=== PATIENT | female | born 1980 | race Caucasian/White ===

== ENCOUNTER → 2017-11-07 15:23 | Outpatient (CLI) | payer MEDICAID, SELFPAY ==
--- NOTE | 2017-11-07 15:36 | DI.REPORT_ITS ---
SYMPTOMS/DIAGNOSIS: LOW BACK PAIN ACUTE, M54.5 LUMBAR SPINE: The vertebral bodies are well maintained in height. There is mild narrowing of the L 5 - S 1 disc space and minimal endplate osteophytes. The remaining disc spaces are well maintained. The alignment is normal. IMPRESSION: Mild degenerative disc changes at L 5 - S 1.
== END ==
PROVIDERS: PCP Family Medicine; Visit Provider Family Medicine
DX: M54.5 Low back pain (principal); M51.37 Other intervertebral disc degeneration, lumbosacral region
CPT/HCPCS: 72100

== ENCOUNTER 2018-01-08 13:47 | Outpatient (REF) | payer MEDICAID, SELFPAY | END 2018-01-08 14:07 | LOC: NCHCN 13:47 | PROVIDERS: PCP Family Medicine; Visit Provider Nurse Practitioner | DX: N76.0 Acute vaginitis (principal) | CPT/HCPCS: 87480; 87510; 87660 ==

== ENCOUNTER 2018-10-05 16:24 | Outpatient (REF) | payer MEDICAID, SELFPAY ==
--- NOTE | 2018-10-05 15:45 | PAPFT_PTH ---
PATIENT: Ena Pardo LOC: [facility] U#:[id number] AGE/SX: 38/F ROOM: RE10/05/[address]: MAG Moore : 1980 BED: DIS: 10/05/2018 SPEC #: [id number] RECD: 10/05/18 18:04 STATUS: LARRY VALLECILLO #: [id number] TULIO: 10/05/18 15:[address]: Jasmyn Fields DEPT: [facility] Cytology RECD BY: Naila Fowler ENTERED: 10/05/18 18:04 SP TYPE: PAPFT OTHR DR: Ernestina Rosales Tissues: 1 - CX/ENDOCX FOR PAP SMEARS Procedures: PAP THIN PREP/UVM Screening HPV DNA PROBE Comments: [id number]
[2018-10-08 15:09] LABS: Chlamydia Result Negative; GC Result Negative; Specimen Description CERVIX
== END 2018-10-05 16:44 ==
LOC: LBN 16:24
PROVIDERS: PCP Family Medicine; Visit Provider Nurse Practitioner Family
DX: Z11.3 Encounter for screening for infections with a predominantly sexual mode of transmission (principal); Z12.4 Encounter for screening for malignant neoplasm of cervix; Z11.51 Encounter for screening for human papillomavirus (HPV)
CPT/HCPCS: 87491; 87591; 88142; 87624

== ENCOUNTER 2018-10-05 16:24 | Outpatient (CLI) | payer MEDICAID, SELFPAY ==
[2018-10-08 10:32] LABS: Hepatitis C Ab w Rflx HCV PCR Negative (NEGAT)
[2018-10-08 11:10] LABS: Hepatitis B Surface Ag Negative (NEGAT)
[2018-10-08 11:26] LABS: HIV-1/2 Ag & Ab Screen Negative (NEGAT)
[2018-10-08 11:54] LABS: Syphilis Serology (RPR) Negative (Negative)
== END 2018-10-05 16:44 ==
PROVIDERS: PCP Nurse Practitioner; Visit Provider Nurse Practitioner Family
DX: Z11.59 Encounter for screening for other viral diseases (principal); Z11.4 Encounter for screening for human immunodeficiency virus [HIV]; Z01.84 Encounter for antibody response examination
CPT/HCPCS: 36415; 86803; 87340; 87389; 86592

== ENCOUNTER 2020-08-13 10:28 | Outpatient (REF) | payer MEDICAID, SELFPAY | END 2020-08-13 10:29 | disposition home or self-care (01) | LOC: NCHCN 10:28 | PROVIDERS: PCP Family Medicine; Visit Provider Nurse Practitioner | DX: N39.0 Urinary tract infection, site not specified (principal) | CPT/HCPCS: 87077; 87086 ==

== ENCOUNTER 2020-09-02 01:12 | Outpatient (CLI) | payer MEDICAID, SELFPAY ==
--- NOTE | 2020-09-02 | DI.US_ITS ---
Exam(s) US PELVIS TRANSVAGINAL EXAM: US PELVIS TRANSVAGINAL CLINICAL HISTORY: MENSTRUAL BLEEDING ABNL, N93.9. TECHNIQUE: Transabdominal and transvaginal pelvic ultrasound was performed using standard protocol. COMPARISON: US PELVIS TRANSVAG from 02/26/2014 FINDINGS: KIDNEYS: Kidneys are symmetric in size. No evidence of renal calculi. No evidence of hydronephrosis. No renal mass or cyst identified. UTERUS: Position: Anteverted. Size: 7.7 long by 4.5 AP by 5.5 transverse cm Endometrium: 1.5 cm. Upper limits of normal in a premenopausal patient. Myometrium: Unremarkable. Cervix: Unremarkable. OVARIES: Right: 3.3 x 2.8 x 2.1 cm Cyst or mass: Small functional cysts are present. Left: 2.9 x 2.5 x 1.8 cm Cyst or mass: Functional cysts are present including a 0.8 x 0.9 x 1.6 corpus luteal cyst. DOPPLER: Color: Symmetric and uniform flow to both ovaries. No hyperemia. Duplex: Normal ovarian arterial waveforms visualized. CUL-DE-SAC: Free fluid: None. Other: None. IMPRESSION: 1. Normal sonographic appearance of the kidneys. 2. Normal-appearing uterus with endometrial stripe within normal limits. 3. Unremarkable bilateral ovaries. DATA REPOSITORY:
== END 2020-09-02 01:32 ==
PROVIDERS: PCP Nurse Practitioner; Visit Provider Nurse Practitioner
DX: N93.9 Abnormal uterine and vaginal bleeding, unspecified (principal)
CPT/HCPCS: 76830; 76856

== ENCOUNTER 2020-09-14 03:16 | Outpatient (CLI) | payer MEDICAID, SELFPAY ==
[2020-09-14 12:01] LABS: Abs Immature Grans 0.02 10^3/uL (0.0-0.06); Absolute Basophil Count 0.06 10^3/uL (0.0-0.2); Absolute Eosinophil Count 0.22 10^3/uL (0.0-0.7); Absolute Lymphocyte Count 2.59 10^3/uL (1.2-3.4); Absolute Monocyte Count 0.42 10^3/uL (0.1-0.8); Absolute Neutrophil Count 3.13 10^3/uL (1.2-6.7); Basophils % 0.9; Eosinophils % 3.4; HCT 40.2 % (36.0-46.0); HGB 13.1 g/dL (11.2-15.7); Immature Grans % 0.3; Lymphocytes % 40.2; MCHC 32.6 % (32.0-36.0); MCV 92.2 fL (80-95); MPV 12.5 fL (8.0-11.0); Monocytes % 6.5; Neutrophils % 48.7; Nucleated RBC 0 %; Platelet Count 185 10^3/uL (130-400); RBC 4.36 10^6/uL (3.93-5.22); RDW 13.5 % (11.7-14.6); RDW-SD 46.3 fL; WBC 6.44 10^3/uL (4.4-10.8)
[2020-09-14 13:37] LABS: TSH (W/Ref FT4) 1.06 uIU/mL (0.36-3.74)
[2020-09-14 22:32] LABS: Prolactin 7.3 ng/mL (See Table)
== END 2020-09-14 03:17 | disposition home or self-care (01) ==
LOC: LBO 03:16
PROVIDERS: PCP Nurse Practitioner; Visit Provider Obstetrics & Gynecology
DX: N93.8 Other specified abnormal uterine and vaginal bleeding (principal)
CPT/HCPCS: 36415; 84146; 84443; 85025

== ENCOUNTER 2020-09-21 12:44 | Outpatient (REF) | payer MEDICAID, SELFPAY ==
--- NOTE | 2020-09-21 11:30 | ENDOMET_PTH ---
PATIENT: Ena Pardo LOC: [facility] #:[id number] AGE/SX: 40/F ROOM: RE09/21/[address]: Anastacia Herrera DO : 1980 BED: DIS: 09/21/2020 SPEC #: [id number] RECD: 09/21/20 13:04 STATUS: LARRY RESari #: [id number] TULIO: 09/21/20 11:[address]: Shannon Ko DEPT: Surgical Specimen RECD BY: Naila Fowler ENTERED: 09/21/20 13:04 SP TYPE: Endomet OTHR DR: Briana Guillermo Tissues: 1 - ENDOMETRIUM BX/BETTIE Procedures: GROSS AND MICRO LEVEL 4 Comments: [id number]
== END 2020-09-21 12:45 | disposition home or self-care (01) ==
LOC: LBN 12:44
PROVIDERS: PCP Nurse Practitioner; Visit Provider Obstetrics & Gynecology
DX: N93.8 Other specified abnormal uterine and vaginal bleeding (principal); N85.01 Benign endometrial hyperplasia
CPT/HCPCS: 88305

== ENCOUNTER 2020-11-24 18:05 | Emergency (ER) | payer MEDICAID, SELFPAY ==
[2020-11-24 18:08] VITALS: BP 126/75; PULSE 95; RESP 16; TEMP 36.5; O2SAT 97
--- NOTE | 2020-11-24 18:15 | ED.GENADUL_ITS ---
Discharge Plan Disposition Patient Disposition: HOME Condition: Improving Discharge Details Clinical Impression: Migraine Primary Care Provider: Briana Guillermo ED Provider: Nazario Velázquez Home Meds and New Rx's Prescriptions: Continued naproxen sodium [Aleve] 220 mg capsule 220 mg PO BID PRNRF: 0 progesterone micronized [Prometrium] 100 mg capsule 100 mg PO QAM 90 Days Qty: 90 RF: 0 sumatriptan succinate [Imitrex] 50 mg tablet 50 mg PO ONCE RF: 0 Discharge Instructions Additional Instructions: Home to rest tonight.Sleep in a dark, quiet room. Small, frequent sips of fluids to maintain hydration. May continue Tylenol and/or naproxen as needed for persistent discomfort. Return develop a fever, worsening headache, or any other acute concerns. You were given a narcotic this evening, for which we would ask you not to drive the remainder of the day. Discharge Data Discharge Date/Time-TO BE ENTERED AT DEPARTURE: 11/24/20 19:56 Medical Decision Making 40-year-old female with a history of migraines presents with onset of migraine yesterday which has been persistent, global and associated with some muscular tightness in her neck which she states is common. She is not fallen or injured her self and she has not been ill. She arrives to the ER afebrile, interactive with no evidence of neurologic deficit. IV access established, patient given fluids and parenteral medications. Screening urinalysis obtained which appears contaminated and will be cultured. Patient with improvement following parenteral medications. She did have some persistent cephalgia and was given additional analgesic. She then improved and was discharged. HPI General Mode of arrival: ambulatory . Date/Time Provider Initiated Documentation: 11/24/20 18:05 . Limitations to Documentation: no limitations . Information obtained by: patient . History of Present Illness 40 year old F presents to the emergency department with the chief complaint of Migraine for 24 hrs, described as moderate, severe and similar to prior episodes, Quality is described as constant, and is localized to the head. Patient reports no radiation. Patient started experiencing this hour(s) and it has been constant. No relieving factors improve symptom(s), Other factors that worsen symptoms (light) . Patient notes headaches; denies syncope. Patient did receive the following treatments prior to arrival, other (nsaid this am) Related Data Home Medications Medication Instructions Recorded Confirmed naproxen sodium 220 mg capsule 220 mg PO BID PRN 10/05/18 11/24/20 sumatriptan succinate 50 mg tablet 50 mg PO ONCE 09/11/20 11/24/20 progesterone micronized 100 mg 100 mg PO QAM 90 Days #90 cap 10/09/20 11/24/20 capsule Previous Rx's Medication Instructions Recorded progesterone micronized 100 mg 100 mg PO QAM 90 Days #90 cap 10/09/20 capsule Allergies Allergy/AdvReac Type Severity Reaction Status Date / Time Sulfa (Sulfonamide Allergy Severe Anaphylaxsi Verified 11/24/20 18:13 Antibiotics) s chlorhexidine Allergy Mild Skin Rash Verified 11/24/20 18:13 [From Hibiclens] General Stated Complaint: Headache NATHANIEL: 3 Review of Systems Narrative: No fall or injury. No other illness. No known sick contacts. No vomiting. Positive light sensitivity. Gets tension in her neck. 8 systems reviewed and otherwise negative. 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 [place] like the neurologist did not offer any helpful treatment Currently manages with Fioricet Thickened endometrium RENEE III (vulvar intraepithelial neoplasia III) Surgical History section 2001, 2007, 2011 Family History Mother Fibrocystic breast changes Father Hyperlipidemia Hypertension Paternal Grandmother Breast cancer with recurrence Social History Smoking/Tobacco Use Status: Current every day Tobacco Type: cigarettes Smoking risk assessment performed?: Yes Drug use: Occasionally Substance use type: marijuana Do you feel safe at home: Yes Do you feel safe in your relationship?: Yes Exam Narrative Exam Narrative: GEN: awake, alert, oriented 3. Pleasant, well groomed, interactive. Lying in darkened room HEAD: Normocephalic, atraumatic ENT: Mucous membranes moist, oropharynx unremarkable, tympanic membranes clear bilaterally, external ear exam unremarkable EYES: PERRL, EOMI NECK: Full ROM, no PATIENCE, no menigismus, left posterior muscular tenderness and mild spasm. No midline tenderness. CHEST/RESP: Nontender, clear to auscultation bilateral, no wheeze/rhonchi/rales CARDIOVASCULAR: RRR, no murmur, rub manuel. 2+ Rad pulse bilateral ABDOMEN: Soft, nontender, no mass. +Bowel sounds EXT: Full ROM, no edema, no rash Neuro: Grossly normal neurologic exam, conversant, interactive. Psych: Speech fluent, thoughts congruent, affect normal Course Vital Signs Vital signs: Vital Signs Temperature 36.5 C 11/24/20 18:08 Pulse 95 H 11/24/20 18:08 Respiratory Rate 16 11/24/20 18:08 Blood Pressure 126/75 11/24/20 18:08 Pulse Oximetry 97 11/24/20 18:08 Temperature 36.5 C 11/24/20 18:08 Temperature Source Skin 11/24/20 18:08 Pulse 95 H 11/24/20 18:08 Respiratory Rate 16 11/24/20 18:08 Respiratory Effort Non-Labored 11/24/20 18:08 Blood Pressure 126/75 11/24/20 18:08 Blood Pressure Position Sitting 11/24/20 18:08 Pulse Oximetry 97 11/24/20 18:08 Oxygen Delivery Method Room Air 11/24/20 18:08 Oxygen Flow Rate 0 11/24/20 18:08 Pain Level 9 11/24/20 18:08
[2020-11-24] MEDS: Normal Saline 1,000 ML 1000 ML IV (18:34)
[2020-11-24] MEDS: Dexamethasone 10 MG/ML VIAL IVP (18:34)
[2020-11-24] MEDS: Ketorolac 15 MG/ML VIAL IVP (18:36)
[2020-11-24] MEDS: diphenhydrAMINE 50 MG/ML VIAL 25 MG IVP (18:38)
[2020-11-24 18:40] LABS: Bilirubin Negative (Negative); Blood Moderate (Negative); Clarity Cloudy (Clear); Glucose Negative (Negative); Ketones Negative (Negative); Leukocyte Esterase Negative (Negative); Nitrite Negative (Negative); Specific Gravity 1.025 (1.005-1.025); pH 7.5 (5-8)
[2020-11-24 19:12] LABS: Bacteria Few HPF (Negative); C & S Indicated? Yes; Casts Negative LPF (Negative); Crystals Moderate Amorphous HPF (Negative); Epithelial Cells Negative HPF (Negative); Mucus Negative (Negative); Other Cells Negative (Negative)
[2020-11-24 19:30] VITALS: BP 125/65; PULSE 85; TEMP 36.4; O2SAT 98
[2020-11-24] MEDS: HYDROmorphone 2 MG/ML VIAL 1 MG IVP (19:40)
[2020-11-24 19:54] VITALS: BP 98/47; PULSE 86; RESP 16; O2SAT 97
== END 2020-11-24 19:56 | disposition home or self-care (01) ==
PROVIDERS: Emergency Provider Emergency Medicine; PCP Nurse Practitioner
DX: G43.909 Migraine, unspecified, not intractable, without status migrainosus (principal)
CPT/HCPCS: 81025; 96361; 96374; 96375; 99284; 81003; 81015; 87086; J1100; J1200; J1885

== ENCOUNTER 2021-01-26 01:11 | Outpatient (CLI) | payer MEDICAID, SELFPAY ==
[2021-01-26] MEDS: Omnipaque 350 MG/ML 50 ML BTL IJ (13:17)
[2021-01-26] MEDS: Breeza Beverage 473 ML BTL PO ×2 (13:18→13:19)
[2021-01-26] MEDS: Normal Saline - Diluent 50 ML VIAL IV (14:34)
[2021-01-26] MEDS: Omnipaque 350 MG/ML 100 ML BTL IJ (14:34)
--- NOTE | 2021-01-26 14:40 | DI.CT_ITS ---
Exam(s) CT ABDOMEN PELVIS W EXAM: CT ABDOMEN PELVIS W INDICATION: LLQ pain- bulging. ? hernia. s/p 4 ,R10.32. COMPARISON: No exams were available for comparison TECHNIQUE: FINDINGS: CT examination of the abdomen and pelvis was performed with a bolus infusion of 100 cc of Omnipaque 3 50. Images obtained through the lung bases are unremarkable. The liver is unremarkable in appearance. Gallbladder and bile ducts are CT normal. Pancreas appears normal. Spleen is unremarkable in appearance. Adrenals appear normal. The kidneys are unremarkable with no evidence of hydronephrosis, nephrolithiasis, or renal mass.. Ur inary bladder unremarkable. Abdominal aorta is of normal diameter and no major vascular abnormality is seen. There is no true abdominal hernia. However, there is marked diastasis anterior bulging the linea alb a. No abdominal or pelvic adenopathy. [employer]PER[employer]OR structures appear intac with an apparent corpus luteum on the right. T. Appendix is normal. No evidence of diverticulitis or bowel obstruction. IMPRESSION: Prominent diastasis recti with ventral bulging of the linea alba. No true abdominal wall hernia. No additional significant findings. RADIATION DOSE DELIVERED: 829.98mGy.cm Total DLP 829.98mGy.cm Total DLP 17.08mGy CTDIvol RADIATION OPTIMIZATION: All CT scans at this facility use at least one of these dose optimization te chniques: automated exposure control; mA and/or kV adjustment per patient size (includes targeted exa ms where dose is matched to clinical indication); or iterative reconstruction.
== END 2021-01-26 01:31 ==
PROVIDERS: PCP Nurse Practitioner; Visit Provider Surgery
DX: R10.32 Left lower quadrant pain (principal); R93.5 Abnormal findings on diagnostic imaging of other abdominal regions, including retroperitoneum
CPT/HCPCS: 74177; J3490; Q9967

== ENCOUNTER 2021-01-27 12:44 | Emergency (ER) | payer MEDICAID, SELFPAY ==
[2021-01-27 12:51] VITALS: BP 125/64; PULSE 85; RESP 16; TEMP 36.7; O2SAT 98
--- NOTE | 2021-01-27 13:03 | ED.GENADUL_ITS ---
Discharge Plan Disposition Patient Disposition: HOME Condition: Improving Discharge Details Clinical Impression: Pyelonephritis Primary Care Provider: Briana Guillermo ED Provider: Bekah Mitchell Home Meds and New Rx's Prescriptions: New cephalexin 500 mg capsule 500 mg PO BID 14 Days Qty: 28 RF: 0 Continued naproxen sodium [Aleve] 220 mg capsule 220 mg PO BID PRNRF: 0 sumatriptan succinate [Imitrex] 50 mg tablet 50 mg PO ONCE RF: 0 Discharge Instructions Instructions: Urinary Tract Infection in Women (ED), Kidney Infection (ED) Additional Instructions: Drink plenty of fluids and get plenty of rest. Alternate tylenol and motrin as needed and directed for pain. A prescription for antibiotics has been sent electronically to your pharmacy. Follow-up with your primary care doctor in [address] Hutcihns's office for follow-up for reevaluation if needed. Return to the emergency department with any worsening or new concerning symptoms. Referrals: Sara Whyte MD [ [facility] STAFF PHYSICIAN] - Discharge Data Discharge Date/Time-TO BE ENTERED AT DEPARTURE: 01/27/21 16:33 Discharge Physician: Bekah Mitchell Medical Decision Making 40-year-old female with a previous history of pyelonephritis presents with right-sided abdominal pain since yesterday. Denies urinary symptoms but states she usually does not have urinary symptoms with her pyelonephritis. She is also recently seen Dr. Whyte for left-sided abdominal pain and with a history of diastases recti and was referred for outpatient CT yesterday which noted Prominent diastasis recti with ventral bulging of the linea alba. No true abdominal wall hernia. No additional significant findings. She appears slightly uncomfortable but nontoxic. Her vitals are within normal limits. She has minimal right-sided tenderness. No CVA tenderness. No rigidity or guarding. Differential diagnosis includes UTI, pyelonephritis, colitis, etc. As she had C T imaging from yesterday which was unremarkable for acute findings other than diastases recti, do not see medication for repeat CT imaging. Will obtain screening labs, give a dose of Toradol, Zofran and reassess Labs reviewed and notes findings consistent with UTI. Remainder of labs within normal limits. Patient reassessed and she feels much better and feels good to go home. Dr. Whyte also evaluated patient at bedside and no other acute recommendations. She was given a dose of keflex here. A prescription for Keflex was sent electronically to her pharmacy. Advised to follow up with the primary care doctor for re-evaluation. Usual and customary return precautions given prior to discharge. Imaging Data Radiologic Study: Radiologist's impression: CT from 01/26/2021 CT ABDOMEN PELVIS W INDICATION: LLQ pain- bulging. ? hernia. s/p 4 ,R10.32. COMPARISON: No exams were available for comparison TECHNIQUE: FINDINGS: CT examination of the abdomen and pelvis was performed with a bolus infusion of 100 cc of Omnipaque 350. Images obtained through the lung bases are unremarkable. The liver is unremarkable in appearance. Gallbladder and bile ducts are CT normal. Pancreas appears normal. Spleen is unremarkable in appearance. Adrenals appear normal. The kidneys are unremarkable with no evidence of hydronephrosis, nephrolithiasis, or renal mass.. Urinary bladder unremarkable. Abdominal aorta is of normal diameter and no major vascular abnormality is seen. There is no true abdominal hernia. However, there is marked diastasis anterior bulging the linea alba. No abdominal or pelvic adenopathy. [employer] PROFESSOR structures appear intac with an apparent corpus luteum on the right. T. Appendix is normal. No evidence of diverticulitis or bowel obstruction. IMPRESSION: Prominent diastasis recti with ventral bulging of the linea alba. No true abdominal wall hernia. No additional significant findings. Lab Data Lab results reviewed: Yes I reviewed the patient's lab results. Labs: 01/27/21 13:05 Urine - Reflex from Ua Urine Culture - Pending Laboratory Tests Range/Units 01/27/21 01/27/21 01/27/21 13:05 13:10 13:10 WBC (4.4-10.8) 10^3/uL 9.01 RBC (3.93-5.22) 10^6/uL 4.35 Hgb (11.2-15.7) g/dL 13.0 Hct (36.0-46.0) % 39.3 MCV (80-95) fL 90.3 MCH (27.0-33.0) pg 29.9 MCHC (32.0-36.0) % 33.1 RDW (11.7-14.6) % 13.2 Plt Count (130-400) 10^3/uL 180 MPV (8.0-11.0) fL 12.3 H Immature Gran % 0.4 Neutrophils % 72.4 Lymphocytes % 19.2 Monocytes % 6.3 Eosinophils % 1.3 Basophils % 0.4 Nucleated RBC % % 0 Absolute Neutrophils (1.2-6.7) 10^3/uL 6.51 Absolute Lymphocytes (1.2-3.4) 10^3/uL 1.73 Absolute Monocytes (0.1-0.8) 10^3/uL 0.57 Absolute Eosinophils (0.0-0.7) 10^3/uL 0.12 Absolute Basophils (0.0-0.2) 10^3/uL 0.04 Sodium (136-145) mmol/L 140 Potassium (3.5-5.1) mmol/L 3.5 Chloride (98-107) mmol/L 105 Carbon Dioxide (21.0-32.0) mmol/L 22.8 Anion Gap (3-11) mmol/L 12.2 H BUN (7-18) mg/dL 10 Creatinine (0.55-1.02) mg/dL 0.9 Estimated GFR/1.73 m2 (mL/min/1.73m2) >= 60.00 Glucose (74-106) mg/dL 139 H Calcium (8.5-10.1) mg/dL 8.7 Total Bilirubin (0.2-1.0) mg/dL 0.3 AST (15-37) U/L 17 ALT (14-59) U/L 18 Alkaline Phosphatase (46-116) U/L 79 Total Protein (6.4-8.2) g/dL 7.1 Albumin (3.4-5.0) g/dL 3.8 Urine Color (Yellow) Yellow Urine Clarity (Clear) CLOUDY Urine pH (5-8) 6.0 Ur Specific [place] (1.005-1.025) >= 1.030 H Urine Protein (Negative) mg/dL 100 H Urine Ketones (Negative) mg/dL 40 H Urine Blood (Negative) Moderate H Urine Nitrite (Negative) Positive H Urine Bilirubin (Negative) Negative Urine Urobilinogen (Up TO 0.2) EU/dL 0.2 Ur Leukocyte Esterase (Negative) Small H Urine RBC (0-2) HPF 5-10 H Urine WBC (0-5) HPF 5-10 Ur Epithelial Cells (Negative) HPF Few Urine Crystals (Negative) HPF Negative Urine Bacteria (Negative) HPF Many Urine Casts (Negative) LPF Negative Urine Mucus (Negative) Trace Urine Other (Negative) Few Transitional Ur Culture Indicated? Yes Urine Glucose (Negative) mg/dL Negative HPI General Mode of arrival: ambulatory . Date/Time Provider Initiated Documentation: 01/27/21 13:00 . Limitations to Documentation: no limitations . Information obtained by: patient . HPI Narrative: Pt is a 40yo F who presents with right sided abdominal pain since this morning. She describes it as achy and crampy. She states it is located in the R side of her abdomen and wraps around to the right side of her back. She has not taken any medication for pain. Pt admits to some nausea but denies fever, vomiting or urinary symptoms. She states she has a h/o kidney infections in the past without having any urinary symptoms first. She does also note that she had been having left sided abdominal pain recently also for which she saw Dr. Whyte recently and had an outpatient CT scan of her abdomen yesterday. She states she is aware that she has a h/o diastasis recti and was referred for the CT to rule out a hernia. She states the left sided abdominal pain is not present at this time. Related Data Home Medications Medication Instructions Recorded Confirmed naproxen sodium 220 mg capsule 220 mg PO BID PRN 10/05/18 01/27/21 sumatriptan succinate 50 mg tablet 50 mg PO ONCE 12/23/20 01/27/21 cephalexin 500 mg PO BID 14 Days #28 cap 01/27/21 Previous Rx's Medication Instructions Recorded cephalexin 500 mg PO BID 14 Days #28 cap 01/27/21 Allergies Allergy/AdvReac Type Severity Reaction Status Date / Time chlorhexidine Allergy Mild unknown Verified 01/27/21 12:56 [From Hibiclens] Sulfa (Sulfonamide Allergy Mild unknown Verified 01/27/21 12:56 Antibiotics) General Stated Complaint: Abd Prob NATHANIEL: 3 Review of Systems All systems reviewed & are unremarkable except as noted in HPI and below Constitutional Constitutional: Reports as per HPI, Denies chills and Denies fever(s) Eyes Eyes: Denies blurry vision ENT Ears, Nose, Mouth, and Throat: Denies dizziness, Denies sore throat and Denies throat swelling Cardiovascular Cardiovascular: Denies chest pain and Denies dyspnea Respiratory Respiratory: Denies cough and Denies dyspnea Gastrointestinal Gastrointestinal: Reports abdominal pain, Denies diarrhea, Reports nausea and Denies vomiting Genitourinary Genitourinary: Denies hematuria and Denies dysuria Musculoskeletal Musculoskeletal: Denies back pain and Denies numbness Integumentary/Breasts Skin/Breast: Denies lesions and Denies rash Neurologic Neurologic: Denies dizziness, Denies localized weakness and Denies numbness Allergic/Immunologic Allergic/Immunologic: Denies throat swelling [facility] Medical History (Updated 01/27/21 @ 15:50 by Bekah Mitchell DO) Deviated nasal septum Diastasis recti DUB (dysfunctional uterine bleeding) Eczema Occurs seasonally to upper arms, manages with topical creams/steroids prn 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 [place] like the neurologist did not offer any helpful treatment Currently manages with Fioricet Thickened endometrium RENEE III (vulvar intraepithelial neoplasia III) Surgical History section 2001, 2007, 2011 Family History Mother Fibrocystic breast changes Father Hyperlipidemia Hypertension Paternal Grandmother Breast cancer with recurrence Social History Smoking/Tobacco Use Status: Current every day Tobacco Type: cigarettes Smoking risk assessment performed?: Yes Drug use: Occasionally Substance use type: marijuana Current gender identity: female Do you feel safe at home: Yes Do you feel safe in your relationship?: Yes Exam Const General: cooperative and no acute distress HENMT Head: normal to inspection Face and sinus: normal facial exam Eyes General: appearance normal, both eyes and all related structures EOM: EOM intact bilaterally Neck Neck: normal visual inspection and No submandibular swelling Lymphatic: no lymphadenopathy noted Chest Chest: normal inspection of the chest and no tenderness Resp Effort & Inspection: normal respiratory effort and able to speak in complete sentences Auscultation: clear to auscultation bilaterally Cardio Rate: regular rate Rhythm: regular rhythm GI Inspection: normal to inspection Palpation: soft, not firm, not rigid and tender (right mid abdomen) in the RLQ Auscultation: normal bowel sounds Back/Spine/Pelvis Thoracic/Lumbar Spine: thoracic and lumbar spine normal to inspection Pelvis: no pain with anterior-posterior compression Skin General skin exam: no rashes or lesions noted Neuro General: patient alert, patient awake and patient oriented x3 Cognition: normal cognition Speech: speech normal Motor: muscle tone normal throughout Sensory Exam: no sensory deficits noted Extrem General: normal to inspection, full ROM, capillary refill normal, no calf tenderness bilaterally and no edema Psych Appearance: grossly normal Mental Status: mental status grossly normal Speech and Movement: speech and movement normal Affect: normal affect Course Vital Signs Vital signs: Vital Signs Temperature 98.1 F 01/27/21 12:51 Pulse 85 01/27/21 12:51 Respiratory Rate 16 01/27/21 12:51 Blood Pressure 125/64 01/27/21 12:51 Pulse Oximetry 98 01/27/21 12:51 Temperature 98.1 F 01/27/21 12:51 Temperature Source Skin 01/27/21 12:51 Pulse 85 01/27/21 12:51 Respiratory Rate 16 01/27/21 12:51 Respiratory Effort Non-Labored 01/27/21 12:51 Blood Pressure 125/64 01/27/21 12:51 Blood Pressure Position Sitting 01/27/21 12:51 Pulse Oximetry 98 01/27/21 12:51 Oxygen Delivery Method Room Air 01/27/21 12:51 Oxygen Flow Rate 0 01/27/21 12:51 Pain Level 9 01/27/21 12:51
[2021-01-27 13:10] LABS: Bilirubin Negative (Negative); Blood Moderate (Negative); Glucose Negative (Negative); Ketones 40 mg/dL (Negative); Leukocyte Esterase Small (Negative); Nitrite Positive (Negative); Specific Gravity >= 1.030 (1.005-1.025); Urobilinogen 0.2 EU/dL (Up TO 0.2)
[2021-01-27 13:11] LABS: Clarity CLOUDY (Clear)
[2021-01-27] MEDS: Normal Saline Flush 10 ML SYR IVP ×2 (13:18→14:21)
[2021-01-27] MEDS: Normal Saline 1,000 ML 1000 ML IV (13:18)
[2021-01-27 13:21] LABS: Bacteria Many HPF (Negative); Crystals Negative HPF (Negative); Epithelial Cells Few HPF (Negative); Mucus Trace (Negative); Other Cells Few Transitional (Negative)
[2021-01-27 13:22] LABS: C & S Indicated? Yes; Casts Negative LPF (Negative)
[2021-01-27 13:23] LABS: Abs Immature Grans 0.04 10^3/uL (0.0-0.06); Absolute Basophil Count 0.04 10^3/uL (0.0-0.2); Absolute Eosinophil Count 0.12 10^3/uL (0.0-0.7); Absolute Lymphocyte Count 1.73 10^3/uL (1.2-3.4); Absolute Monocyte Count 0.57 10^3/uL (0.1-0.8); Absolute Neutrophil Count 6.51 10^3/uL (1.2-6.7); Basophils % 0.4; Eosinophils % 1.3; HCT 39.3 % (36.0-46.0); Immature Grans % 0.4; Lymphocytes % 19.2; MCH 29.9 pg (27.0-33.0); MCHC 33.1 % (32.0-36.0); MCV 90.3 fL (80-95); MPV 12.3 fL (8.0-11.0); Monocytes % 6.3; Neutrophils % 72.4; Nucleated RBC 0 %; Platelet Count 180 10^3/uL (130-400); RBC 4.35 10^6/uL (3.93-5.22); RDW 13.2 % (11.7-14.6); RDW-SD 44.5 fL; WBC 9.01 10^3/uL (4.4-10.8)
[2021-01-27 13:33] LABS: ALT 18 U/L (14-59); AST 17 U/L (15-37); Albumin 3.8 g/dL (3.4-5.0); Alkaline Phosphatase 79 U/L (46-116); Anion Gap 12.2 mmol/L (3-11); BUN 10 mg/dL (7-18); Bilirubin, Total 0.3 mg/dL (0.2-1.0); CO2 22.8 mmol/L (21.0-32.0); CREATININE 0.9 mg/dL (0.55-1.02); Calcium 8.7 mg/dL (8.5-10.1); Chloride 105 mmol/L (98-107); Glucose 139 mg/dL (74-106); Potassium 3.5 mmol/L (3.5-5.1); Sodium 140 mmol/L (136-145); Total Protein 7.1 g/dL (6.4-8.2)
[2021-01-27] MEDS: Ketorolac 30 MG/ML VIAL IVP (14:19)
[2021-01-27] MEDS: Ondansetron 4 MG/2 ML VIAL IVP (14:19)
[2021-01-27 14:57] VITALS: BP 117/67; PULSE 72; RESP 16; TEMP 36.7; O2SAT 100
[2021-01-27] MEDS: Cephalexin 500 MG CAP PO (15:34)
[2021-01-27 16:32] VITALS: BP 117/67; PULSE 72; RESP 16; TEMP 36.7; O2SAT 100
== END 2021-01-27 16:33 | disposition home or self-care (01) ==
PROVIDERS: Emergency Provider Physician Assistant; PCP Nurse Practitioner
DX: N10 Acute pyelonephritis (principal)
CPT/HCPCS: 36415; 80053; 81025; 87077; 96361; 96374; 96375; 99284; 81003; 81015; 85025; 87086; 87186; J1885; J2405

== ENCOUNTER 2021-09-22 16:48 | Outpatient (REF) | payer MEDICAID, SELFPAY | END 2021-09-22 16:49 | disposition home or self-care (01) | LOC: NCHCN 16:48 | PROVIDERS: PCP Nurse Practitioner; Visit Provider Nurse Practitioner Family | DX: N39.0 Urinary tract infection, site not specified (principal) | CPT/HCPCS: 87077; 87086; 87186 ==

== ENCOUNTER 2021-09-22 19:18 | Emergency (ER) | payer MEDICAID, SELFPAY ==
[2021-09-22 19:32] VITALS: BP 137/52; PULSE 73; RESP 16; TEMP 36.9; O2SAT 100
[2021-09-22 20:20] LABS: Bilirubin Negative (Negative); Blood Trace-intact (Negative); Clarity Cloudy (Clear); Glucose Negative (Negative); Ketones Negative (Negative); Leukocyte Esterase Small (Negative); Nitrite Negative (Negative); Specific Gravity 1.025 (1.005-1.025)
[2021-09-22 20:27] LABS: Bacteria Rare HPF (Negative); C & S Indicated? Yes; Crystals Negative HPF (Negative); Epithelial Cells Moderate HPF (Negative); Mucus Negative (Negative); Other Cells Few Renal (Negative); RBC 0-2 HPF (0-2); WBC >50 HPF (0-5)
--- NOTE | 2021-09-22 20:45 | DI.CT_ITS ---
Exam(s) CT ABDOMEN PELVIS WO EXAM: CT ABDOMEN PELVIS WO CLINICAL HISTORY: Flank pain, R/O Pyelonephritis, Kidney stone. TECHNIQUE: Imaging Protocol: Axial computed tomography images with coronal and sagittal reformatted images were created and reviewed. COMPARISON: CT CT ABDOMEN PELVIS W from 01/26/2021 FINDINGS: ABDOMEN: Lung Bases: Normal where visualized. Liver: Normal density. No measurable mass. Gallbladder and biliary tract: No radiodense calculus or biliary ductal dilation. Pancreas: Normal density, no abnormal calcifications or inflammatory process. Spleen: Normal. Kidneys: Normal size, contour and axis.No radiodense stones or obstructive uropathy. No masses seen. Adrenal glands: No mass is seen. Lymph nodes: Within normal limits. Abdominal Aorta: Abdominal portion non-dilated. Mild atherosclerosis. PELVIS: Bladder:Symmetric distention, no gross wall thickening. Bowel: No obstruction or bowel wall thickening. No evidence of appendicitis. Peritoneal cavity: No ascites, collection or mesenteric inflammatory response. No free air. Reproductive organs: Unremarkable as visualized. Bones: Within normal limits. Soft Tissues: Stable diastasis recti IMPRESSION: 1. No evidence of nephrolithiasis or hydronephrosis. 2. No acute abdominal or pelvic process. RADIATION DOSE DELIVERED: 731.47mGy.cm Total DLP DATA REPOSITORY: All CT scans at this facility are submitted to the National Radiology Data Registry (NRDR) Dose Index Registry (DIR) with the [employer] (A[employer]). RADIATION OPTIMIZATION: All CT scans at this facility use at least one of these dose optimization te chniques: automated exposure control; mA and/or kV adjustment per patient size (includes targeted exa ms where dose is matched to clinical indication); or iterative reconstruction.
[2021-09-22 20:49] LABS: Abs Immature Grans 0.03 10^3/uL (0.0-0.06); Absolute Basophil Count 0.08 10^3/uL (0.0-0.2); Absolute Eosinophil Count 0.24 10^3/uL (0.0-0.7); Absolute Lymphocyte Count 2.89 10^3/uL (1.2-3.4); Absolute Monocyte Count 0.82 10^3/uL (0.1-0.8); Absolute Neutrophil Count 5.72 10^3/uL (1.2-6.7); Basophils % 0.8; Eosinophils % 2.5; HCT 37.8 % (36.0-46.0); HGB 12.6 g/dL (11.2-15.7); Immature Grans % 0.3; Lymphocytes % 29.6; MCH 29.6 pg (27.0-33.0); MCHC 33.3 % (32.0-36.0); MCV 89 fL (80-95); MPV 12.7 fL (8.0-11.0); Monocytes % 8.4; Neutrophils % 58.4; Platelet Count 217 10^3/uL (130-400); RBC 4.25 10^6/uL (3.93-5.22); RDW-SD 45.1 fL; WBC 9.78 10^3/uL (4.4-10.8)
--- NOTE | 2021-09-22 20:51 | W.ED.GENAD ---
Discharge Plan Disposition Patient Disposition: HOME Condition: Stable Discharge Details Clinical Impression: UTI (urinary tract infection) Primary Care Provider: Briana Guillermo ED Provider: Marge Trimble Home Meds and New Rx's Prescriptions: New cephalexin 500 mg tablet 500 mg PO BID 7 Days Qty: 14 0RF No Action naproxen sodium [Aleve] 220 mg capsule 220 mg PO BID PRN sumatriptan succinate [Imitrex] 100 mg tablet See Rx Instructions PO .COMPLEX Qty: 10 3RF Rx Instructions: take 1 tab at onset of headache; if no relief, may repeat 1 tab after at least 2 hrs; max = 2 tabs/24 hrs PO topiramate 25 mg tablet See Rx Instructions .ROUTE .COMPLEX Qty: 90 3RF Dose Instruction: TAKE 1 TABLET BY MOUTH EVERY NIGHT AT BEDTIME Rx Instructions: TAKE 1 TABLET BY MOUTH EVERY NIGHT AT BEDTIME Discharge Instructions Instructions: Urinary Tract Infection in Women (ED) Additional Instructions: This time there is no evidence for kidney stone. Please begin the cephalexin in the morning. You were given IV antibiotics here. Please take Tylenol or Ibuprofen with food every 4-6 hours as needed for pain and swelling. Follow up with primary care provider in 3-5 days. Return to ED sooner if any worsening or concerns. Increase oral fluids. Referrals: Briana Guillermo [Primary Care Provider] - 1 week Discharge Data Discharge Date/Time-TO BE ENTERED AT DEPARTURE: 09/22/21 22:55 Medical Decision Making 41-year-old female presents to the ER with chief complaint of worsening bilateral flank pain, worse on the right, and urinary frequency for the last 2 days. Patient has a past medical history of recurrent pyelonephritis. She was diagnosed with a UTI by her PCP yesterday, was prescribed Macrobid which she has been unable to get filled. She reports that since that the right flank pain has become worse. She reports nausea no vomiting denies any fever chills body aches. She denies any vaginal bleeding or abnormal vaginal discharge. CBC, CMP, urinalysis and test ordered. CT abdomen pelvis without contrast ordered to rule out Nav versus kidney stone. CBC shows no leukocytosis, urinalysis shows 30 protein trace blood small leukocyte greater than 50 WBCs. Moderate moderate epithelial cells culture is pending at this time. will give patient a gram of Rocephin due to recurrent pyelonephritis and plan to place patient on cephalexin. I did discuss this plan of care with patient who verbalized understanding and is in agreement with the plan. Toradol and Zofran ordered. Patient given prescription for cephalexin. This text was generated using [employer] system, please disregard any oddities of phrase or misspellings. Medical Records Medical records reviewed: Yes I reviewed the patient's medical records. Lab Data Lab results reviewed: Yes I reviewed the patient's lab results. Labs: 09/22/21 20:09 Urine - Reflex from Ua Urine Culture - Preliminary Gram Positive [facility] Laboratory Tests Range/Units 09/22/21 09/22/21 09/22/21 20:09 20:35 20:35 WBC (4.4-10.8) 10^3/uL 9.78 RBC (3.93-5.22) 10^6/uL 4.25 Hgb (11.2-15.7) g/dL 12.6 Hct (36.0-46.0) % 37.8 MCV (80-95) fL 89 MCH (27.0-33.0) pg 29.6 MCHC (32.0-36.0) % 33.3 RDW (11.7-14.6) % 14.0 Plt Count (130-400) 10^3/uL 217 MPV (8.0-11.0) fL 12.7 H Immature Gran % 0.3 Neutrophils % 58.4 Lymphocytes % 29.6 Monocytes % 8.4 Eosinophils % 2.5 Basophils % 0.8 Nucleated RBC % (0.0-0.3) % 0.0 Absolute Neutrophils (1.2-6.7) 10^3/uL 5.72 Absolute Lymphocytes (1.2-3.4) 10^3/uL 2.89 Absolute Monocytes (0.1-0.8) 10^3/uL 0.82 H Absolute Eosinophils (0.0-0.7) 10^3/uL 0.24 Absolute Basophils (0.0-0.2) 10^3/uL 0.08 Sodium (136-145) mmol/L 140 Potassium (3.5-5.1) mmol/L 3.6 Chloride (98-107) mmol/L 105 Carbon Dioxide (21.0-32.0) mmol/L 28.0 Anion Gap (3-11) mmol/L 7.0 BUN (7-18) mg/dL 14 Creatinine (0.55-1.02) mg/dL 1.0 Estimated GFR/1.73 m2 (mL/min/1.73m2) >= 60.00 Glucose (74-106) mg/dL 79 Calcium (8.5-10.1) mg/dL 8.9 Total Bilirubin (0.2-1.0) mg/dL 0.2 AST (15-37) U/L 12 L ALT (14-59) U/L 19 Alkaline Phosphatase (46-116) U/L 76 Total Protein (6.4-8.2) g/dL 7.4 Albumin (3.4-5.0) g/dL 3.7 Urine Color (Yellow) Yellow Urine Clarity (Clear) Cloudy Urine pH (5-8) 7.0 Ur Specific Dobbins (1.005-1.025) 1.025 Urine Protein (Negative) mg/dL 30 H Urine Ketones (Negative) mg/dL Negative Urine Blood (Negative) Trace-intact H Urine Nitrite (Negative) Negative Urine Bilirubin (Negative) Negative Urine Urobilinogen (Up TO 0.2) EU/dL 1.0 H Ur Leukocyte Esterase (Negative) Small H Urine RBC (0-2) HPF 0-2 Urine WBC (0-5) HPF >50 H Ur Epithelial Cells (Negative) HPF Moderate Urine Crystals (Negative) HPF Negative Urine Bacteria (Negative) HPF Rare Urine Mucus (Negative) Negative Urine Other (Negative) Few Renal Ur Culture Indicated? Yes Urine Glucose (Negative) mg/dL Negative HPI General Mode of arrival: ambulatory. Date/Time Provider Initiated Documentation: 09/22/21 19:56. Limitations to Documentation: no limitations. Information obtained by: patient, RN notes reviewed and old records reviewed. HPI Narrative: 41-year-old female presents to the ER with chief complaint of worsening bilateral flank pain, worse on the right, and urinary frequency for the last 2 days. Patient has a past medical history of recurrent pyelonephritis. She was diagnosed with a UTI by her PCP yesterday, was prescribed Macrobid which she has been unable to get filled. She reports that since that the right flank pain has become worse. She reports nausea no vomiting denies any fever chills body aches. She denies any vaginal bleeding or abnormal vaginal discharge. Past medical history includes pyelonephritis, vulvar intraepithelial neoplasia, ventral hernia, diastasis recti, anxiety and PTSD. . Related Data Home Medications Medication Instructions Recorded Confirmed naproxen sodium 220 mg capsule 220 mg PO BID PRN 10/05/18 09/22/21 (Aleve) sumatriptan succinate 100 mg See Rx Instructions PO .COMPLEX 04/28/21 09/22/21 tablet (Imitrex) #10 tabs topiramate 25 mg tablet See Rx Instructions .Route 07/05/21 09/22/21 .COMPLEX #90 tabs cephalexin 500 mg tablet 500 mg PO BID 7 days #14 tabs 09/22/21 Previous Rx's Medication Instructions Recorded sumatriptan succinate 100 mg See Rx Instructions PO .COMPLEX 04/28/21 tablet (Imitrex) #10 tabs topiramate 25 mg tablet See Rx Instructions .Route 07/05/21 .COMPLEX #90 tabs cephalexin 500 mg tablet 500 mg PO BID 7 days #14 tabs 09/22/21 Allergies Allergy/AdvReac Type Severity Reaction Status Date / Time chlorhexidine Allergy Mild unknown Verified 09/22/21 19:36 [From Hibiclens] Sulfa (Sulfonamide Allergy Mild unknown Verified 09/22/21 19:36 Antibiotics) General Stated Complaint: FlankPain NATHANIEL: 4 Review of Systems All systems reviewed & are unremarkable except as noted in HPI and below Genitourinary Genitourinary: Reports as per HPI, Reports menorrhagia, Reports flank pain and Reports urinary urgency PFSH All Active Problems (Updated 09/22/21 @ 22:33 by Marge Trimble NP) UTI (urinary tract infection) (Acute) Ulnar neuropathy of left upper extremity (Acute) PTSD (post-traumatic stress disorder) (Acute) Chronic headaches (Acute) Anxiety (Chronic) Irritable bowel (Chronic) Vulvar intraepithelial neoplasia (Acute) Lower back pain (Acute) UTI (urinary tract infection) (Acute) Menstrual abnormality (Acute) Ventral hernia (Acute) Migraine (Chronic) Thickened endometrium (Acute) Diastasis recti (Acute) RENEE III (vulvar intraepithelial neoplasia III) (Acute) DUB (dysfunctional uterine bleeding) (Acute) Medical History Deviated nasal septum Pyelonephritis RENEE III (vulvar intraepithelial neoplasia III) Surgical History section 2001, 2007, 2011 Family History Mother Fibrocystic breast changes Father Hyperlipidemia Hypertension Paternal Grandmother Breast cancer with recurrence Social History Smoking/Tobacco Use Status: Current every day Tobacco Type: cigarettes Smoking risk assessment performed?: Yes Drug use: Occasionally Substance use type: marijuana Current gender identity: female Do you feel safe at home: Yes Do you feel safe in your relationship?: Yes Exam Narrative Exam Narrative: Constitutional: Alert and oriented x3. Appears stated age. Normal body habitus. Head: Normocephalic, no trauma. Eyes: Pupils PERRL, Red reflex noted, EOM's intact. Eyelids symmetrical without lesions, discharge, or swelling. Chest: RRR, Normal S1, S2, distal pulses intact. Resp: Lungs clear to auscultation bilaterally, no wheezes, rales, or rhonchi. Abdomen: Soft, non-distended, Normoactive bowel sounds all 4 quads. Positive bilateral CVA tenderness with palpation. Musculoskeletal: Normal gait, 5/5 strength to all four extremities. Skin: No suspicious rashes or lesions. Capillary refill less than 2 sec. Neurologic: Cranial nerves II-XII intact. Alert and oriented x 3. Motor: No deficits noted. Hematologic/Lymphatic: No ecchymosis, no lymphadenopathy. Course Vital Signs Vital signs: Vital Signs Temperature 36.9 C 09/22/21 19:32 Pulse 73 09/22/21 19:32 Respiratory Rate 16 09/22/21 19:32 Blood Pressure 137/52 L 09/22/21 19:32 Pulse Oximetry 100 09/22/21 19:32 Temperature 36.9 C 09/22/21 19:32 Temperature Source Temporal Artery Scan 09/22/21 19:32 Pulse 73 09/22/21 19:32 Respiratory Rate 16 09/22/21 19:32 Respiratory Effort Non-Labored 09/22/21 19:37 Blood Pressure 137/52 L 09/22/21 19:32 Blood Pressure Position Sitting 09/22/21 19:32 Pulse Oximetry 100 09/22/21 19:32 Oxygen Delivery Method Room Air 09/22/21 19:32 Oxygen Flow Rate 0 09/22/21 19:32 Pain Level 8 09/22/21 19:32 Lab/Test Results Lab/Test Results: 09/22/21 20:09 Urine - Reflex from Ua Urine Culture - Pending Laboratory Tests Range/Units 09/22/21 20:09 Urine Color (Yellow) Yellow Urine Clarity (Clear) Cloudy Urine pH (5-8) 7.0 Ur Specific Dobbins (1.005-1.025) 1.025 Urine Protein (Negative) mg/dL 30 H Urine Ketones (Negative) mg/dL Negative Urine Blood (Negative) Trace-intact H Urine Nitrite (Negative) Negative Urine Bilirubin (Negative) Negative Urine Urobilinogen (Up TO 0.2) EU/dL 1.0 H Ur Leukocyte Esterase (Negative) Small H Urine RBC (0-2) HPF 0-2 Urine WBC (0-5) HPF >50 H Ur Epithelial Cells (Negative) HPF Moderate Urine Crystals (Negative) HPF Negative Urine Bacteria (Negative) HPF Rare Urine Mucus (Negative) Negative Urine Other (Negative) Few Renal Ur Culture Indicated? Yes Urine Glucose (Negative) mg/dL Negative PAWSS Have you Been Recently Intoxicated or Drunk Within the Last 30 days?: No Have you Ever Experienced Previous Episodes of Alcohol Withdrawal?: No Have you ever Experienced Withdrawal Seizures?: No Have you ever Experienced Delirium Tremens(DT)s?: No Have you ever undergone Alcohol Rehabilitation Treatment (i.e, inpt ot outpatient treatment programs)?: No Have you ever Experienced Blackouts?: No Have you ever Combined Alcohol with other Downers within the last 90 days?: No Have you ever Combined Alcohol with any other Substance of Abuse during the last 90 days?: No Positive Blood Alcohol level on Presentation? [PCS.BAL]: No Evidence of Increased Autonomic Activity (i.e. HR>120, tremor, sweating, agitation, nausea)?: No Result: 0
[2021-09-22 21:00] LABS: ALT 19 U/L (14-59); AST 12 U/L (15-37); Albumin 3.7 g/dL (3.4-5.0); Alkaline Phosphatase 76 U/L (46-116); BUN 14 mg/dL (7-18); Bilirubin, Total 0.2 mg/dL (0.2-1.0); Calcium 8.9 mg/dL (8.5-10.1); Chloride 105 mmol/L (98-107); Glucose 79 mg/dL (74-106); Potassium 3.6 mmol/L (3.5-5.1); Sodium 140 mmol/L (136-145); Total Protein 7.4 g/dL (6.4-8.2)
[2021-09-22] MEDS: cefTRIAXone 1 GM/50 ML BAG IVPB (21:05)
[2021-09-22] MEDS: Ondansetron O.D.T. 4 MG TABEF PO (21:05)
[2021-09-22] MEDS: Ketorolac 15 MG/ML VIAL IVP (21:05)
--- NOTE | 2021-09-22 22:12 | DI.VRAD_ITS ---
PROCEDURE INFORMATION: Exam: CT Abdomen And Pelvis Without Contrast Exam date and time: 09/22/2021 9:34 PM Age: 41 years old Clinical indication: Other: Flank pain, R/O pyelonephritis, kidney stone TECHNIQUE: Imaging protocol: Computed tomography of the abdomen and pelvis without contrast. COMPARISON: CT ABDOMEN PELVIS W 01/26/2021 2:42 PM FINDINGS: Liver: Normal. No mass. Gallbladder and bile ducts: Gallbladder is contracted. No biliary duct dilatation. Pancreas: Normal. No ductal dilation. Spleen: Normal. No splenomegaly. Adrenal glands: Normal. No mass. Kidneys and ureters: Normal. No hydronephrosis. Stomach and bowel: Unremarkable. No obstruction. No mucosal thickening. Appendix: Normal appendix. Intraperitoneal space: Unremarkable. No free air. No significant fluid collection. Vasculature: Minimal calcified atherosclerotic disease. No abdominal aortic aneurysm. Lymph nodes: Unremarkable. No enlarged lymph nodes. Urinary bladder: Unremarkable as visualized. Reproductive: Unremarkable as visualized. Bones/joints: Moderate L5-S1 degenerative disc disease. No acute fracture or focal suspicious osseous lesion. Soft tissues: Diastasis recti. IMPRESSION: No acute abnormality. Dictated and Authenticated by: Kelechi Carlos MD. Ordering:NAILA Bird MD
[2021-09-22] MEDS: Phenazopyridine 100 MG TAB, 2 TABS/BTL PO (22:54)
[2021-09-22] MEDS: Cephalexin 500 MG CAP, 2 CAPS/BTL PO (22:54)
== END 2021-09-22 22:55 | disposition home or self-care (01) ==
PROVIDERS: Emergency Provider Registered Nurse Emergency; PCP Nurse Practitioner
DX: N39.0 Urinary tract infection, site not specified (principal); B95.7 Other staphylococcus as the cause of diseases classified elsewhere; R10.9 Unspecified abdominal pain
CPT/HCPCS: 80053; 87077; 96365; 96375; 99284; 74176; 81003; 81015; 85025; 87086; J0696; J1885

== ENCOUNTER 2022-01-03 16:07 | Emergency (ER) | payer MEDICAID, SELFPAY ==
[2022-01-03 16:10] VITALS: BP 105/51; PULSE 90; RESP 18; TEMP 37; O2SAT 99
--- NOTE | 2022-01-03 16:34 | ED.GENADUL_ITS ---
Discharge Plan Disposition Patient Disposition: HOME Condition: Stable Discharge Details Clinical Impression: Enteritis Primary Care Provider: Unknown,Unknown ED Provider: Devon Wu Home Meds and New Rx's Prescriptions: New dicyclomine 20 mg tablet 20 mg PO QID Qty: 14 0RF Continued naproxen sodium [Aleve] 220 mg capsule 220 mg PO BID PRN sumatriptan succinate [Imitrex] 100 mg tablet See Rx Instructions PO .COMPLEX Qty: 10 3RF Rx Instructions: take 1 tab at onset of headache; if no relief, may repeat 1 tab after at least 2 hrs; max = 2 tabs/24 hrs PO Discharge Instructions Instructions: Enteritis (ED) Additional Instructions: Your work-up today reveals enteritis. It also reveals incidentally a moderately enlarged liver as well as a enlarged portal vein, this needs to be followed by your primary care provider. I am providing you a prescription of Bentyl and you may also take [id number] medication for symptomatic control. Please watch for new or worsening symptoms and return to the ER for any concerns. Lastly, please contact your primary care provider tomorrow to discuss your ER visit and need for outpatient reevaluation. If symptoms are to persist then potential outpatient surgical consultation and colonoscopy may be indicated. Medical Decision Making 41-year-old female who reports past medical history of anxiety, irritable bowel, atypical UTIs, went to bed last night asymptomatic and awoke this morning with bilateral back-flank pain that radiates to her abdomen, crampy in nature. Denies fever, nausea, vomiting, bad food exposure, recent sick contacts or travel, diarrhea, constipation or black or tarry stools, bright red blood in her stools, dysuria, hematuria. Patient states history of atypical UTIs-kidney infections that sometimes presents somewhat like this. Denies history of renal stones. Clinically she appears well, nontoxic, afebrile, abdomen is slightly tender throughout the nonfocal. Plan is to obtain routine screening laboratory values, urinalysis, and will give IV Toradol Unfortunately disposition delayed as the first 2 urine samples were heavily contaminated. CBC, CMP, lipase unremarkable. The third urinalysis is negative for nitrates, negative for leuk esterase, 3-5 white cells, negative for bacteria. No clear signs of infection Discussed work-up thus far. Patient reports continuation of pain. Will provide IV morphine. She request to move forward with CT imaging for further evaluation of her symptoms CT imaging reveals enteritis, mesenteric adenitis. Likely incidental enlarged liver with mild portal vein hypertension Discussed findings with patient. No clear indication to initiate antibiotic therapy. We will provide prescription of Bentyl and will give the first dose now. We discussed her incidental findings on the CT and discussed the importance of follow-up through her PCP regarding this Standard discharge and return precautions were provided. Patient understands, is agreeable to this plan, and has no additional questions or concerns upon discharge. This documentation was generated using [employer] system, please disregard any oddities of phrase or misspellings. Medical Records Medical records reviewed: Yes I reviewed the patient's medical records. Imaging Data Radiologic Study: Attestation: I personally reviewed and interpreted this imaging study as follows: Imaging: CT Scan Radiologist's impression: PROCEDURE INFORMATION: Exam: CT Abdomen And Pelvis With Contrast Exam date and time: 01/03/2022 7:27 PM Age: 41 years old Clinical indication: Abdominal pain and other: Bilat flank; Localized; Prior surgery; Surgery date: 6+ months; Surgery type: 4 c-sections; Patient HX: Bilat back pain, lower abdominal pain TECHNIQUE: Imaging protocol: Computed tomography of the abdomen and pelvis with contrast. Radiation optimization: All CT scans at this facility use at least one of these dose optimization techniques: automated exposure control; mA and/or kV adjustment per patient size (includes targeted exams where dose is matched to clinical indication); or iterative reconstruction. Contrast material: OMNIPAQUE 350; Contrast volume: 89 ml; Contrast route: INTRAVENOUS (IV); COMPARISON: CT ABDOMEN PELVIS WO 09/22/2021 9:34 PM FINDINGS: Lungs: The lungs are normal. There is no evidence of focal pulmonary consolidation. Pleural spaces: There is no e vidence of pneumothorax. There are no pleural effusions present. Heart: The cardiac structures are normal. Liver: There are no focal liver lesions present. There is no evidence of intrahepatic or extrahepatic biliary ductal dilation. The liver is moderately enlarged measuring 19 cm. Gallbladder and bile ducts: The gallbladder is normal. There is no cholelitiasis, wall thickening or pericholecystic fluid to suggest cholecystitis. Pancreas: The pancreas is normal. Spleen: The spleen is normal. Adrenal glands: The adrenal glands are normal. Kidneys and ureters: The kidneys are normal.Stomach and bowel: There are fluid-filled loops of small bowel with air-fluid levels. There is bowel wall thickening and inflammatory changes. No evidence of obstruction. Findings are consistent with acute enteritis. There is no evidence of intestinal obstruction. No diverticulitis is present. Appendix: A normal appendix is identified. There is no evidence of distention or periappendiceal inflammation to suggest appendicitis. Intraperitoneal space: There is no free intraperitoneal air. There is no evidence of free intraperitoneal or pelvic fluid. There are no soft tissue masses or fluid collections. Vasculature: The portal vein measures 17 mm consider early portal hypertension. The aorta demonstrates mild atherosclerotic calcification. The peripheral arterial vascular system visualized is unremarkable. The portal venous system visualized is unremarkable. The venous system visualized is unremarkable. Lymph nodes: There are mildly enlarged nonspecific lymph nodes in the mesenteric fat. This nonspecific mesenteric adenitis can be secondary to a variety of bacterial, viral, or other inflammatory processes. Urinary bladder: The bladder is normal. Reproductive: The uterus is normal. The ovaries are normal. Bones/joints: The skeletal structures show no evidence of fracture or other acute processes. Soft tissues: The extra-abdominal soft tissues are normal. IMPRESSION: 1. The portal vein measures 17 mm consider early portal hypertension. 2. The liver is moderately enlarged measuring 19 cm. 3. Findings are consistent with acute enteritis. 4. There are mildly enlarged nonspecific lymph nodes in the mesenteric fat. This nonspecific mesenteric adenitis can be secondary to a variety of bacterial, viral, or other inflammatory processes. Thank you for allowing us to participate in the care of your patient. Lab Data Lab results reviewed: Yes I reviewed the patient's lab results. Labs: Laboratory Tests Range/Units 01/03/22 01/03/22 01/03/22 16:34 16:34 16:40 WBC (4.4-10.8) 10^3/uL 8.64 RBC (3.93-5.22) 10^6/uL 4.54 Hgb (11.2-15.7) g/dL 12.8 Hct (36.0-46.0) % 38.6 MCV (80-95) fL 85 MCH (27.0-33.0) pg 28.2 MCHC (32.0-36.0) % 33.2 RDW (11.7-14.6) % 14.8 H Plt Count (130-400) 10^3/uL 206 MPV (8.0-11.0) fL 12.5 H Immature Gran % 0.2 Neutrophils % 75.0 Lymphocytes % 14.8 Monocytes % 8.0 Eosinophils % 1.5 Basophils % 0.5 Nucleated RBC % (0.0-0.3) % 0.0 Absolute Neutrophils (1.2-6.7) 10^3/uL 6.48 Absolute Lymphocytes (1.2-3.4) 10^3/uL 1.28 Absolute Monocytes (0.1-0.8) 10^3/uL 0.69 Absolute Eosinophils (0.0-0.7) 10^3/uL 0.13 Absolute Basophils (0.0-0.2) 10^3/uL 0.04 Sodium (136-145) mmol/L 139 Potassium (3.5-5.1) mmol/L 3.7 Chloride (98-107) mmol/L 105 Carbon Dioxide (21.0-32.0) mmol/L 27.0 Anion Gap (3-11) mmol/L 7.0 BUN (7-18) mg/dL 10 Creatinine (0.55-1.02) mg/dL 1.0 Est GFR (CKD-EPI 2020) (mL/min/1.73m2) 72.58 Glucose (74-106) mg/dL 113 H Calcium (8.5-10.1) mg/dL 8.8 Total Bilirubin (0.2-1.0) mg/dL 0.3 AST (15-37) U/L 18 ALT (14-59) U/L 20 Alkaline Phosphatase (46-116) U/L 75 Total Protein (6.4-8.2) g/dL 7.1 Albumin (3.4-5.0) g/dL 3.7 Lipase (73-393) U/L 92 Urine Color (Yellow) Yellow Urine Clarity (Clear) Sl Cloudy Urine pH (5-8) 7.0 Ur Specific [place] (1.005-1.025) 1.025 Urine Protein (Negative) mg/dL Negative Urine Ketones (Negative) mg/dL Negative Urine Blood (Negative) Trace-intact H Urine Nitrite (Negative) Negative Urine Bilirubin (Negative) Negative Urine Urobilinogen (Up TO 0.2) EU/dL 0.2 Ur Leukocyte Esterase (Negative) Trace H Urine RBC (0-2) HPF 3-5 H Urine WBC (0-5) HPF 5-10 Ur Epithelial Cells (Negative) HPF Many Urine Crystals (Negative) HPF Few Amorphous Urine Bacteria (Negative) HPF Few Urine Mucus (Negative) Negative Urine Other (Negative) Ur Culture Indicated? No/Sq. Contamination Urine Glucose (Negative) mg/dL Negative Range/Units 01/03/22 01/03/22 17:28 18:10 WBC (4.4-10.8) 10^3/uL RBC (3.93-5.22) 10^6/uL Hgb (11.2-15.7) g/dL Hct (36.0-46.0) % MCV (80-95) fL MCH (27.0-33.0) pg MCHC (32.0-36.0) % RDW (11.7-14.6) % Plt Count (130-400) 10^3/uL MPV (8.0-11.0) fL Immature Gran % Neutrophils % Lymphocytes % Monocytes % Eosinophils % Basophils % Nucleated RBC % (0.0-0.3) % Absolute Neutrophils (1.2-6.7) 10^3/uL Absolute Lymphocytes (1.2-3.4) 10^3/uL Absolute Monocytes (0.1-0.8) 10^3/uL Absolute Eosinophils (0.0-0.7) 10^3/uL Absolute Basophils (0.0-0.2) 10^3/uL Sodium (136-145) mmol/L Potassium (3.5-5.1) mmol/L Chloride (98-107) mmol/L Carbon Dioxide (21.0-32.0) mmol/L Anion Gap (3-11) mmol/L BUN (7-18) mg/dL Creatinine (0.55-1.02) mg/dL Est GFR (CKD-EPI 2020) (mL/min/1.73m2) Glucose (74-106) mg/dL Calcium (8.5-10.1) mg/dL Total Bilirubin (0.2-1.0) mg/dL AST (15-37) U/L ALT (14-59) U/L Alkaline Phosphatase (46-116) U/L Total Protein (6.4-8.2) g/dL Albumin (3.4-5.0) g/dL Lipase (73-393) U/L Urine Color (Yellow) Yellow Yellow Urine Clarity (Clear) Clear Clear Urine pH (5-8) 6.5 6.0 Ur Specific [place] (1.005-1.025) 1.010 1.010 Urine Protein (Negative) mg/dL Negative Negative Urine Ketones (Negative) mg/dL Negative Negative Urine Blood (Negative) Trace-intact H Trace-lysed H Urine Nitrite (Negative) Negative Negative Urine Bilirubin (Negative) Negative Negative Urine Urobilinogen (Up TO 0.2) EU/dL 0.2 0.2 Ur Leukocyte Esterase (Negative) Trace H Negative Urine RBC (0-2) HPF 0-2 0-2 Urine WBC (0-5) HPF 5-10 3-5 Ur Epithelial Cells (Negative) HPF Many Moderate Urine Crystals (Negative) HPF Negative Negative Urine Bacteria (Negative) HPF Negative Negative Urine Mucus (Negative) Negative Negative Urine Other (Negative) Few Transitional Ur Culture Indicated? No/Sq. Contamination No Urine Glucose (Negative) mg/dL Negative Negative HPI General Mode of arrival: ambulatory . Date/Time Provider Initiated Documentation: 01/03/22 16:16 . Limitations to Documentation: no limitations . Information obtained by: patient . History of Present Illness 41 year old F presents to the emergency department with the chief complaint of Bilat back/flank pain, described as moderate, with intensity rated at 7. Quality is described as aching and other (cramping), and is localized to the back and abdomen. Patient flank. Patient started experiencing this hour(s) (10) and it has been constant. No relieving factors improve symptom(s), No exacerbating factors reported . Patient notes no other symptoms.. Patient did receive the following treatments prior to arrival, none Related Data Home Medications Medication Instructions Recorded Confirmed naproxen sodium 220 mg capsule 220 mg PO BID PRN 10/05/18 01/03/22 (Aleve) sumatriptan succinate 100 mg See Rx Instructions PO .COMPLEX 04/28/21 01/03/22 tablet (Imitrex) #10 tabs dicyclomine 20 mg tablet 20 mg PO QID #14 tabs 01/03/22 Previous Rx's Medication Instructions Recorded sumatriptan succinate 100 mg See Rx Instructions PO .COMPLEX 04/28/21 tablet (Imitrex) #10 tabs dicyclomine 20 mg tablet 20 mg PO QID #14 tabs 01/03/22 Allergies Allergy/AdvReac Type Severity Reaction Status Date / Time chlorhexidine Allergy Mild unknown Verified 09/22/21 19:36 [From Hibiclens] Sulfa (Sulfonamide Allergy Mild unknown Verified 09/22/21 19:36 Antibiotics) General Stated Complaint: FlankPain NATHANIEL: 3 Review of Systems Constitutional Constitutional: Denies fever(s) and Denies weakness Cardiovascular Cardiovascular: Denies chest pain and Denies dyspnea Respiratory Respiratory: Denies cough and Denies dyspnea Gastrointestinal Gastrointestinal: Reports abdominal pain, Denies melena, Denies hematochezia, Denies constipation, Denies diarrhea, Denies nausea and Denies vomiting Genitourinary Genitourinary: Denies hematuria, Denies dysuria and Denies vaginal discharge Musculoskeletal Musculoskeletal: Reports back pain Integumentary/Breasts Skin/Breast: Denies rash Neurologic Neurologic: Denies weakness PFSH All Active Problems Enteritis (Acute) Ulnar neuropathy of left upper extremity (Acute) PTSD (post-traumatic stress disorder) (Acute) Chronic headaches (Acute) Anxiety (Chronic) Irritable bowel (Chronic) Vulvar intraepithelial neoplasia (Acute) Lower back pain (Acute) UTI (urinary tract infection) (Acute) Menstrual abnormality (Acute) Ventral hernia (Acute) Migraine (Chronic) Thickened endometrium (Acute) Diastasis recti (Acute) RENEE III (vulvar intraepithelial neoplasia III) (Acute) DUB (dysfunctional uterine bleeding) (Acute) Medical History Deviated nasal septum Pyelonephritis RENEE III (vulvar intraepithelial neoplasia III) Surgical History section 2001, 2007, 2011 Family History Mother Fibrocystic breast changes Father Hyperlipidemia Hypertension Paternal Grandmother Breast cancer with recurrence Social History Smoking/Tobacco Use Status: Current every day Tobacco Type: cigarettes Smoking risk assessment performed?: Yes Alcohol Intake: current Alcohol Intake frequency: holidays/special occasions only Drug use: Rarely Substance use type: marijuana Current gender identity: female Do you feel safe at home: Yes Do you feel safe in your relationship?: Yes Exam Const General: cooperative, healthy appearing, comfortable and no acute distress Orientation: alert and awake [facility] Head: normal to inspection, normocephalic and atraumatic Face and sinus: normal facial exam Mouth: moist mucous membranes Eyes General: appearance normal, both eyes and all related structures Conjunctivae: conjunctivae normal Neck Neck: normal visual inspection, full ROM, no meningeal signs, trachea midline and supple Resp Effort & Inspection: normal respiratory effort and able to speak in complete sentences Auscultation: clear to auscultation bilaterally Cardio Rate: regular rate Rhythm: regular rhythm GI Inspection: normal to inspection Palpation: soft, not firm, no guarding, no pulsatile masses and tender (Diffuse mild) not at McBurney's point, Hughes's sign negative and with no rebound tenderness Auscultation: normal bowel sounds Back/Spine/Pelvis Back: no CVA tenderness and back tenderness (Diffuse mild lumbar) Skin General skin exam: no rashes or lesions noted Neuro General: patient alert, patient awake, moves all extremities and no focal motor deficits Cognition: normal cognition Speech: speech normal Gait: normal gait Sensory Exam: no sensory deficits noted Extrem General: normal to inspection, full ROM and capillary refill normal Psych Appearance: grossly normal Mental Status: mental status grossly normal Course Vital Signs Vital signs: Vital Signs Temperature 37.0 C 01/03/22 16:10 Pulse 90 01/03/22 16:10 Respiratory Rate 18 01/03/22 16:10 Blood Pressure 105/51 L 01/03/22 16:10 Pulse Oximetry 99 01/03/22 16:10 Temperature 37.0 C 01/03/22 16:10 Temperature Source Temporal Artery Scan 01/03/22 16:10 Pulse 90 01/03/22 16:10 Respiratory Rate 18 01/03/22 16:10 Respiratory Effort Non-Labored 01/03/22 16:17 Blood Pressure 105/51 L 01/03/22 16:10 Blood Pressure Position Sitting 01/03/22 16:10 Pulse Oximetry 99 01/03/22 16:10 Oxygen Delivery Method Room Air 01/03/22 16:10 Oxygen Flow Rate 0 01/03/22 16:10 Pain Level 9 01/03/22 16:29
[2022-01-03 16:54] LABS: Bilirubin Negative (Negative); Blood Trace-intact (Negative); Clarity Sl Cloudy (Clear); Glucose Negative (Negative); Ketones Negative (Negative); Leukocyte Esterase Trace (Negative); Nitrite Negative (Negative); Specific Gravity 1.025 (1.005-1.025); Urobilinogen 0.2 EU/dL (Up TO 0.2)
[2022-01-03 16:58] LABS: Abs Immature Grans 0.02 10^3/uL (0.0-0.06); Absolute Basophil Count 0.04 10^3/uL (0.0-0.2); Absolute Eosinophil Count 0.13 10^3/uL (0.0-0.7); Absolute Lymphocyte Count 1.28 10^3/uL (1.2-3.4); Absolute Monocyte Count 0.69 10^3/uL (0.1-0.8); Absolute Neutrophil Count 6.48 10^3/uL (1.2-6.7); Basophils % 0.5; Eosinophils % 1.5; HCT 38.6 % (36.0-46.0); HGB 12.8 g/dL (11.2-15.7); Immature Grans % 0.2; Lymphocytes % 14.8; MCH 28.2 pg (27.0-33.0); MCHC 33.2 % (32.0-36.0); MCV 85 fL (80-95); MPV 12.5 fL (8.0-11.0); Platelet Count 206 10^3/uL (130-400); RBC 4.54 10^6/uL (3.93-5.22); RDW 14.8 % (11.7-14.6); RDW-SD 45.8 fL; WBC 8.64 10^3/uL (4.4-10.8)
[2022-01-03 17:05] LABS: Bacteria Few HPF (Negative); C & S Indicated? No/Sq. Contamination; Crystals Few Amorphous HPF (Negative); Epithelial Cells Many HPF (Negative); Mucus Negative (Negative)
[2022-01-03 17:26] LABS: ALT 20 U/L (14-59); AST 18 U/L (15-37); Albumin 3.7 g/dL (3.4-5.0); Alkaline Phosphatase 75 U/L (46-116); BUN 10 mg/dL (7-18); Bilirubin, Total 0.3 mg/dL (0.2-1.0); Calcium 8.8 mg/dL (8.5-10.1); Chloride 105 mmol/L (98-107); Estimated GFR 72.58 (mL/min/1.73m2); Glucose 113 mg/dL (74-106); Lipase 92 U/L (73-393); Potassium 3.7 mmol/L (3.5-5.1); Sodium 139 mmol/L (136-145); Total Protein 7.1 g/dL (6.4-8.2)
[2022-01-03 17:38] LABS: Bilirubin Negative (Negative); Blood Trace-intact (Negative); Clarity Clear (Clear); Glucose Negative (Negative); Ketones Negative (Negative); Leukocyte Esterase Trace (Negative); Nitrite Negative (Negative); Urobilinogen 0.2 EU/dL (Up TO 0.2); pH 6.5 (5-8)
[2022-01-03] MEDS: Ketorolac 30 MG/ML VIAL IVP (17:43)
[2022-01-03 17:49] LABS: Bacteria Negative HPF (Negative); C & S Indicated? No/Sq. Contamination; Crystals Negative HPF (Negative); Epithelial Cells Many HPF (Negative); Mucus Negative (Negative); RBC 0-2 HPF (0-2)
[2022-01-03 18:25] LABS: Bilirubin Negative (Negative); Blood Trace-lysed (Negative); Clarity Clear (Clear); Glucose Negative (Negative); Ketones Negative (Negative); Leukocyte Esterase Negative (Negative); Nitrite Negative (Negative); Urobilinogen 0.2 EU/dL (Up TO 0.2)
[2022-01-03 18:45] LABS: Bacteria Negative HPF (Negative); C & S Indicated? No; Crystals Negative HPF (Negative); Epithelial Cells Moderate HPF (Negative); Mucus Negative (Negative); Other Cells Few Transitional (Negative); RBC 0-2 HPF (0-2)
--- NOTE | 2022-01-03 18:45 | DI.CT_ITS ---
Exam(s) CT ABDOMEN PELVIS W EXAM: CT ABDOMEN PELVIS W CLINICAL HISTORY: bilat back/flank pain TECHNIQUE: Imaging Protocol: Axial computed tomography images with coronal and sagittal reformatted images were created and reviewed CONTRAST MATERIAL: Intravenous: Omnipaque 350 Contrast volume:89 mL Oral: No COMPARISON: CT CT ABDOMEN PELVIS WO from 09/22/2021 FINDINGS: ABDOMEN: Lung Bases: Normal where visualized. Liver: Normal density. No measurable mass. The liver measures 19 cm long. Portal, Superior Mesenteric, and Splenic Veins: Unremarkable. Gallbladder and Biliary Tract: No radiodense calculus or dilation. Pancreas: Normal density, no abnormal calcifications or inflammatory process. Spleen: Normal. Adrenals: No masses seen. Kidneys: Normal size, contour and axis. No radiodense stones or obstructive uropathy. No masses seen. There is a tiny hypodensity in the for pole of the left kidney. It is too small for further charact erization but likely reflects a small cyst. Abdominal Aorta: Abdominal portion non-dilated. Mild atherosclerosis. Bowel: There is no evidence of bowel obstruction. Bowel wall thickening is seen in the spine through out the small bowel. Appendix is unremarkable. Peritoneal Cavity: No ascites, collection or mesenteric inflammatory response. No free air. Lymph Nodes: Within normal limits. Bones: Within normal limits for the patient's age. Soft Tissues: Unremarkable. PELVIS: Bladder: Symmetric distention, no gross wall thickening. Reproductive Organs: Unremarkable as visualized. Lymph Nodes: Within normal limits. Bones: Within normal limits for the patient's age. IMPRESSION: 1. Wall thickening is seen throughout the small bowel suggesting acute enteritis. 2. Mildly enlarged liver. RADIATION DOSE DELIVERED: 628.72mGy.cm Total DLP DATA REPOSITORY: All CT scans at this facility are submitted to the National Radiology Data Registry (NRDR) Dose Index Registry (DIR) with the [employer] (A[employer]). RADIATION OPTIMIZATION: All CT scans at this facility use at least one of these dose optimization te chniques: automated exposure control; mA and/or kV adjustment per patient size (includes targeted exa ms where dose is matched to clinical indication); or iterative reconstruction.
[2022-01-03] MEDS: Omnipaque 350 MG/ML 500 ML BTL-Imaging package IJ (19:26)
[2022-01-03] MEDS: Normal Saline Flush 10 ML SYR IVP (19:32)
[2022-01-03] MEDS: MORPHine 10 MG/ML VIAL 2 MG IVP (19:54)
--- NOTE | 2022-01-03 20:50 | DI.VRAD_ITS ---
PROCEDURE INFORMATION: Exam: CT Abdomen And Pelvis With Contrast Exam date and time: 01/03/2022 7:27 PM Age: 41 years old Clinical indication: Abdominal pain and other: Bilat flank; Localized; Prior surgery; Surgery date: 6+ months; Surgery type: 4 c-sections; Patient HX: Bilat back pain, lower abdominal pain TECHNIQUE: Imaging protocol: Computed tomography of the abdomen and pelvis with contrast. Radiation optimization: All CT scans at this facility use at least one of these dose optimization techniques: automated exposure control; mA and/or kV adjustment per patient size (includes targeted exams where dose is matched to clinical indication); or iterative reconstruction. Contrast material: OMNIPAQUE 350; Contrast volume: 89 ml; Contrast route: INTRAVENOUS (IV); COMPARISON: CT ABDOMEN PELVIS WO 09/22/2021 9:34 PM FINDINGS: Lungs: The lungs are normal. There is no evidence of focal pulmonary consolidation. Pleural spaces: There is no evidence of pneumothorax. There are no pleural effusions present. Heart: The cardiac structures are normal. Liver: There are no focal liver lesions present. There is no evidence of intrahepatic or extrahepatic biliary ductal dilation. The liver is moderately enlarged measuring 19 cm. Gallbladder and bile ducts: The gallbladder is normal. There is no cholelitiasis, wall thickening or pericholecystic fluid to suggest cholecystitis. Pancreas: The pancreas is normal. Spleen: The spleen is normal. Adrenal glands: The adrenal glands are normal. Kidneys and ureters: The kidneys are normal. Stomach and bowel: There are fluid-filled loops of small bowel with air-fluid levels. There is bowel wall thickening and inflammatory changes. No evidence of obstruction. Findings are consistent with acute enteritis. There is no evidence of intestinal obstruction. No diverticulitis is present. Appendix: A normal appendix is identified. There is no evidence of distention or periappendiceal inflammation to suggest appendicitis. Intraperitoneal space: There is no free intraperitoneal air. There is no evidence of free intraperitoneal or pelvic fluid. There are no soft tissue masses or fluid collections. Vasculature: The portal vein measures 17 mm consider early portal hypertension. The aorta demonstrates mild atherosclerotic calcification. The peripheral arterial vascular system visualized is unremarkable. The portal venous system visualized is unremarkable. The venous system visualized is unremarkable. Lymph nodes: There are mildly enlarged nonspecific lymph nodes in the mesenteric fat. This nonspecific mesenteric adenitis can be secondary to a variety of bacterial, viral, or other inflammatory processes. Urinary bladder: The bladder is normal. Reproductive: The uterus is normal. The ovaries are normal. Bones/joints: The skeletal structures show no evidence of fracture or other acute processes. Soft tissues: The extra-abdominal soft tissues are normal. IMPRESSION: 1. The portal vein measures 17 mm consider early portal hypertension. 2. The liver is moderately enlarged measuring 19 cm. 3. Findings are consistent with acute enteritis. 4. There are mildly enlarged nonspecific lymph nodes in the mesenteric fat. This nonspecific mesenteric adenitis can be secondary to a variety of bacterial, viral, or other inflammatory processes. Dictated and Authenticated by: Thomas Arnold MD. Ordering:BILL Osorio MD
[2022-01-03] MEDS: Dicyclomine 20 MG TAB PO (21:03)
[2022-01-03 21:09] VITALS: PULSE 75; RESP 18; O2SAT 98
== END 2022-01-03 21:10 | disposition home or self-care (01) ==
PROVIDERS: Emergency Provider Physician Assistant
DX: K52.9 Noninfective gastroenteritis and colitis, unspecified (principal); F17.210 Nicotine dependence, cigarettes, uncomplicated
CPT/HCPCS: 36415; 80053; 81025; 83690; 96374; 96375; 99284; 74177; 81003; 81015; 85025; J1885; J2270

== ENCOUNTER 2022-10-05 23:50 | Emergency (ER) | payer MEDICAID, SELFPAY ==
--- NOTE | 2022-10-05 23:45 | RT.EKG_ITS ---
APPROVED REPORT Exam: Resting ECG Reason for Exam: head injury Patient Location: E HR:98 bpm ECG Measurements Heart Rate 98 AXIS NM 118 P 77 QRSd 79 QRS 88 QT 334 T 53 QTc 427 Conclusion Sinus rhythm...normal P axis, V-rate 60- 99
[2022-10-05 23:56] VITALS: BP 175/102; PULSE 108; RESP 24; O2SAT 97
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
--- NOTE | 2022-10-06 00:03 | DI.CT_ITS ---
Exam(s) CT HEAD CERVICAL SPINE WO EXAM: CT HEAD CERVICAL SPINE WO CLINICAL HISTORY: trauma. TECHNIQUE: Imaging Protocol: Axial computed tomography images with coronal and sagittal reformatted images were created and reviewed COMPARISON: CT NECK WITH CONTRAST from 09/01/2015 FINDINGS: BRAIN: There are no skull fractures nor fluid in the visualized paranasal sinuses. There is no evidence of intracranial hemorrhage, mass effect, or shift of midline structures. There are no extra-axial fluid collections. The ventricles are not enlarged or shifted and there is no blo od within the ventricular system nor within the basal cisterns. CERVICAL SPINE: There is no evidence of fracture nor listhesis. No significant prevertebral soft tissue swelling. There is no significant facet joint malalignment. No significant osseous lesions evident. IMPRESSION: No acute intracranial findings on this noninfused CT scan of the brain. No evidence of cervical spine fracture, malalignment, nor acute compromise of the cervical spinal can al. RADIATION DOSE DELIVERED: 1,377.91mGy.cm Total DLP DATA REPOSITORY: All CT scans at this facility are submitted to the National Radiology Data Registry (NRDR) Dose Index Registry (DIR) with the [employer] (A[employer]). RADIATION OPTIMIZATION: All CT scans at this facility use at least one of these dose optimization te chniques: automated exposure control; mA and/or kV adjustment per patient size (includes targeted exa ms where dose is matched to clinical indication); or iterative reconstruction.
[2022-10-06 00:55] VITALS: BP 129/77; PULSE 84; PULSE 88; RESP 22
[2022-10-06 00:56] VITALS: PULSE 89; RESP 18
[2022-10-06 01:00] VITALS: BP 150/88; PULSE 91; PULSE 96; RESP 20
[2022-10-06 01:01] VITALS: PULSE 90; RESP 20
[2022-10-06] MEDS: Ibuprofen 600 MG TAB PO (01:19)
--- NOTE | 2022-10-06 01:38 | DI.VRAD_ITS ---
PROCEDURE INFORMATION: Exam: CT Head Without Contrast Exam date and time: 10/06/2022 12:29 AM Age: 42 years old Clinical indication: Injury or trauma; Fall; Concussion/head injury; Consciousness not specified TECHNIQUE: Imaging protocol: Computed tomography of the head without contrast. Radiation optimization: All CT scans at this facility use at least one of these dose optimization techniques: automated exposure control; mA and/or kV adjustment per patient size (includes targeted exams where dose is matched to clinical indication); or iterative reconstruction. COMPARISON: No relevant prior studies available. FINDINGS: Brain: Normal. No hemorrhage. Unremarkable white matter. No mass effect. Cerebral ventricles: No ventriculomegaly. Paranasal sinuses: Visualized sinuses are unremarkable. No fluid levels. Mastoid air cells: Visualized mastoid air cells are well aerated. Bones/joints: Unremarkable. No acute fracture. Soft tissues: Unremarkable. IMPRESSION: No acute intracranial abnormality. PROCEDURE INFORMATION: Exam: CT Cervical Spine Without Contrast Exam date and time: 10/06/2022 12:29 AM Age: 42 years old Clinical indication: Injury or trauma; Fall; Concussion/head injury; Consciousness not specified TECHNIQUE: Imaging protocol: Computed tomography of the cervical spine without contrast. Radiation optimization: All CT scans at this facility use at least one of these dose optimization techniques: automated exposure control; mA and/or kV adjustment per patient size (includes targeted exams where dose is matched to clinical indication); or iterative reconstruction. COMPARISON: No relevant prior studies available. FINDINGS: Bones/joints: No acute fracture. Normal alignment. No significant disc bulge or herniation. No severe spinal canal stenosis. No significant neural foraminal narrowing. Lungs: Lung apices are normal. Soft tissues: Unremarkable. IMPRESSION: No acute findings. Dictated and Authenticated by: Judd Overotn MD. Ordering:FABIANO Arthur MD
[2022-10-06 02:15] VITALS: BP 150/88; PULSE 96; RESP 20; O2SAT 97
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
--- NOTE | 2022-10-11 16:09 | NUR.NOTE ---
acessed patient chart to follow up on when stables can be taken out.Nursing Note:
== END 2022-10-06 02:12 | disposition home or self-care (01) ==
PROVIDERS: Emergency Provider Emergency Medicine Emergency Medical Services
DX: S09.90XA Unspecified injury of head, initial encounter (principal); S01.01XA Laceration without foreign body of scalp, initial encounter; S50.312A Abrasion of left elbow, initial encounter; S50.311A Abrasion of right elbow, initial encounter; F17.210 Nicotine dependence, cigarettes, uncomplicated; F19.10 Other psychoactive substance abuse, uncomplicated; Y04.2XXA Assault by strike against or bumped into by another person, initial encounter; Y93.89 Activity, other specified; Y92.85 Railroad track as the place of occurrence of the external cause; Y99.9 Unspecified external cause status
CPT/HCPCS: 12002; 93005; 99284; 70450; 72125; 93010; 99283

== ENCOUNTER 2022-10-20 15:26 | Emergency (ER) | payer MEDICAID, SELFPAY ==
--- NOTE | 2022-10-20 15:30 | DI.RAD_ITS ---
Exam(s) XR ELBOW RT COMPLETE EXAM: XR ELBOW RT COMPLETE CLINICAL HISTORY: Injury 10-05-22, Pain. TECHNIQUE: 2D digital imaging was performed of the left elbow. Three images were obtained. AP, lat eral and oblique views were obtained. COMPARISON: No exams were available for comparison FINDINGS: BONES: No acute fracture is present. No bony destructive lesion is seen. JOINTS: The elbow is normally aligned. No joint effusion is seen. SOFT TISSUE: Normal. IMPRESSION: Unremarkable radiographs of the right elbow. DATA REPOSITORY: RADIATION DOSE DELIVERED:
[2022-10-20 15:34] VITALS: BP 112/57; PULSE 87; RESP 14; TEMP 37.3; O2SAT 100
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
[2022-10-20 17:15] VITALS: BP 132/80; PULSE 78; RESP 20; TEMP 36.8; O2SAT 98
== END 2022-10-20 17:19 | disposition home or self-care (01) ==
LOC: ER 17:10
PROVIDERS: Emergency Provider Registered Nurse Emergency
DX: S53.491A Other sprain of right elbow, initial encounter (principal); Y09 Assault by unspecified means
CPT/HCPCS: 99283; 73080

== ENCOUNTER 2022-11-13 15:27 | Emergency (ER) | payer MEDICAID, SELFPAY ==
[2022-11-13 15:28] VITALS: BP 106/64; PULSE 62; RESP 14; TEMP 37.1; O2SAT 99
--- NOTE | 2022-11-13 15:35 | W.ED.GENAD ---
Discharge Plan Disposition Patient Disposition: Home Discharge Details Clinical Impression: Acute streptococcal pharyngitis Primary Care Provider: None,None ED Provider: Eric Diaz Home Meds and New Rx's Prescriptions: New amoxicillin 500 mg capsule 500 mg PO BID Qty: 20 0RF Continued sumatriptan succinate [Imitrex] 100 mg tablet See Rx Instructions PO .COMPLEX Qty: 10 3RF Patient Comments: pt states not taking 11/13/22 Rx Instructions: take 1 tab at onset of headache; if no relief, may repeat 1 tab after at least 2 hrs; max = 2 tabs/24 hrs PO clonidine HCl 0.1 mg tablet 0.1 mg DAILY Patient Comments: Take 1 tablet by mouth every night hydroxyzine HCl 50 mg tablet 50 mg TID Patient Comments: Take 1 tablet by mouth three times a day as needed Discontinued naproxen sodium [Aleve] 220 mg capsule 220 mg PO BID PRN Patient Comments: pt states not taking 11/13/22 Discharge Instructions Instructions: Strep Throat (ED) Additional Instructions: Please stay well-hydrated, get plenty of rest, and feel free to take [id number] sore throat medication along with ibuprofen as needed for discomfort. Take medication as prescribed until fully completed. Return to the emergency department for any new or significant worsening of symptoms otherwise follow-up with your primary care provider as needed for reassessment Referrals: Primary Care Provider [Outside] (As needed for reassessment) Discharge Data Discharge Date/Time-TO BE ENTERED AT DEPARTURE: 11/13/22 16:45 Medical Decision Making Patient presenting to the emergency department for chief complaint of sore throat. Patient reports symptoms started yesterday. States maybe some slight nasal congestion and ear pressure but mostly here for sore throat. She does state history of strep throat with similar presentation. She has had chills but no measured fever at this point. She has been taking ibuprofen to help with symptoms. Exam consistent with Pharyngitis. 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 Pt non toxic and stable. Will perform swabs for strep and COVID. Patient positive for strep pharyngitis otherwise negative test results. Discussed with patient risk versus benefit of antibiotics in setting of strep throat. After full discussion patient states good understanding of our discussion but is requesting for antibiotics which I feel is appropriate given that she has positive symptomatic and clinical correlation with symptoms. Patient placed on amoxicillin for 10 days. After discussion of diagnosis and plan of care patient has no further needs, questions, or concerns and states clear understanding to return to the emergency department for any worsening symptoms. This documentation was generated using [employer] dictation system, please disregard any oddities of phrase or misspellings. Lab Data Lab results reviewed: Yes I reviewed the patient's lab results. HPI General Mode of arrival: ambulatory. Date/Time Provider Initiated Documentation: 11/13/22 15:31. Limitations to Documentation: no limitations. Information obtained by: patient and RN notes reviewed. History of Present Illness 42 year old F presents to the emergency department with the chief complaint of Sore throat, described as moderate and similar to prior episodes, Quality is described as aching, Patient started experiencing this day(s) (1) and it has been constant. No relieving factors improve symptom(s), No exacerbating factors reported . Patient did receive the following treatments prior to arrival, NSAID Related Data Home Medications Medication Instructions Recorded Confirmed sumatriptan succinate 100 mg See Rx Instructions PO .COMPLEX 04/28/21 10/06/22 tablet (Imitrex) #10 tabs amoxicillin 500 mg capsule 500 mg PO BID #20 caps 11/13/22 clonidine HCl 0.1 mg tablet 0.1 mg DAILY 11/13/22 11/13/22 hydroxyzine HCl 50 mg tablet 50 mg TID 11/13/22 11/13/22 Previous Rx's Medication Instructions Recorded sumatriptan succinate 100 mg See Rx Instructions PO .COMPLEX 04/28/21 tablet (Imitrex) #10 tabs amoxicillin 500 mg capsule 500 mg PO BID #20 caps 11/13/22 Allergies Allergy/AdvReac Type Severity Reaction Status Date / Time chlorhexidine Allergy Mild unknown Verified 11/13/22 15:32 [From Hibiclens] Sulfa (Sulfonamide Allergy Mild unknown Verified 11/13/22 15:32 Antibiotics) General Stated Complaint: Sorethroat NATHANIEL: 4 Review of Systems Constitutional Constitutional: Reports chills, Denies fever(s), Denies headache(s) and Reports malaise ENT Ears, Nose, Mouth, and Throat: Denies change in voice, Denies dysphagia, Reports otalgia, Denies headache(s), Denies hoarseness, Denies lip swelling, Denies mouth lesions, Reports nasal congestion, Reports odynophagia, Reports sore throat, Denies throat swelling and Denies tongue swelling Cardiovascular Cardiovascular: Denies chest pain Respiratory Respiratory: Denies chest congestion and Denies cough Gastrointestinal Gastrointestinal: Denies dysphagia and Reports odynophagia Neurologic Neurologic: Denies headache(s) Allergic/Immunologic Allergic/Immunologic: Denies lip swelling, Denies throat swelling and Denies tongue swelling PFSH All Active Problems (Updated 11/13/22 @ 16:24 by Eric Diaz NP) Other sprain of right elbow, initial encounter (Acute) Acute streptococcal pharyngitis (Acute) Ulnar neuropathy of left upper extremity (Acute) PTSD (post-traumatic stress disorder) (Acute) Chronic headaches (Acute) Anxiety (Chronic) Irritable bowel (Chronic) Vulvar intraepithelial neoplasia (Acute) Lower back pain (Acute) UTI (urinary tract infection) (Acute) Menstrual abnormality (Acute) Ventral hernia (Acute) Migraine (Chronic) Thickened endometrium (Acute) Diastasis recti (Acute) RENEE III (vulvar intraepithelial neoplasia III) (Acute) DUB (dysfunctional uterine bleeding) (Acute) Medical History Deviated nasal septum Pyelonephritis RENEE III (vulvar intraepithelial neoplasia III) Surgical History section 2001, 2007, 2011 Family History Mother Fibrocystic breast changes Father Hyperlipidemia Hypertension Paternal Grandmother Breast cancer with recurrence Social History Smoking/Tobacco Use Status: Current every day Tobacco Type: cigarettes Smoking risk assessment performed?: Yes Alcohol Intake: current Alcohol Intake frequency: holidays/special occasions only Drug use: Rarely Substance use type: marijuana and crack/cocaine Current gender identity: female Do you feel safe at home: Yes Do you feel safe in your relationship?: Yes Exam Const General: cooperative, healthy appearing, comfortable, no acute distress and not ill appearing Orientation: alert, awake and oriented x3 HENMT Head: normal to inspection and normocephalic Ears: hearing grossly normal bilaterally, external ears normal, TM's normal bilaterally and mastoids normal General nose exam: external nose normal and nares normal Mouth: oral mucosae normal, lip normal, tongue normal, no audible dysphonia, no drooling and no trismus Throat: uvula midline, abnormal tonsil bilaterally erythema and hypertrophy 1+ and no peritonsillar masses Neck Neck: normal visual inspection, full ROM, no lymphadenopathy and no meningeal signs Resp Effort & Inspection: normal respiratory effort, able to speak in complete sentences and no stridor Auscultation: clear to auscultation bilaterally Cardio Rate: regular rate Rhythm: regular rhythm Heart Sounds: S1 normal and S2 normal Skin General skin exam: no rashes or lesions noted Course Vital Signs Vital signs: Vital Signs Temperature 37.1 C 11/13/22 15:28 Pulse 62 11/13/22 15:28 Respiratory Rate 14 11/13/22 15:28 Blood Pressure 106/64 11/13/22 15:28 Pulse Oximetry 99 11/13/22 15:28 Temperature 37.1 C 11/13/22 15:28 Temperature Source Skin 11/13/22 15:28 Pulse 62 11/13/22 15:28 Respiratory Rate 14 11/13/22 15:28 Blood Pressure 106/64 11/13/22 15:28 Blood Pressure Position Sitting 11/13/22 15:28 Pulse Oximetry 99 11/13/22 15:28 Oxygen Delivery Method Room Air 11/13/22 15:28 Oxygen Flow Rate 0 11/13/22 15:28 Pain Level 6 11/13/22 15:28
[2022-11-13 16:42] VITALS: BP 126/77; PULSE 79; RESP 16; O2SAT 99
[2022-11-13] MEDS: Amoxicillin 500 MG CAP PO (17:07)
== END 2022-11-13 16:45 | disposition home or self-care (01) ==
PROVIDERS: Emergency Provider Nurse Practitioner Family
DX: J02.0 Streptococcal pharyngitis (principal)
CPT/HCPCS: 87426; 87880; 99283; 99282

== ENCOUNTER 2023-01-30 20:35 | Emergency (ER) | payer MEDICAID, SELFPAY ==
[2023-01-30] VITALS (12 sets, daily range): BP systolic 120–132; BP diastolic 75–83; PULSE 78–97; RESP 15–31; TEMP 36.3; O2SAT 98–100
--- NOTE | 2023-01-30 20:39 | ED.GENADUL_ITS ---
Discharge Plan Disposition Patient Disposition: Home Condition: Improving Discharge Details Chief Complaint: OD/Poison Clinical Impression: Accidental overdose, Opioid intoxication with complication Primary Care Provider: Unknown,Unknown ED Provider: Anthony Jerome Home Meds and New Rx's Prescriptions: No Action sumatriptan succinate [Imitrex] 100 mg tablet See Rx Instructions PO .COMPLEX Qty: 10 3RF Patient Comments: pt states not taking 11/13/22 Rx Instructions: take 1 tab at onset of headache; if no relief, may repeat 1 tab after at least 2 hrs; max = 2 tabs/24 hrs PO clonidine HCl 0.1 mg tablet 0.1 mg DAILY Patient Comments: Take 1 tablet by mouth every night hydroxyzine HCl 50 mg tablet 50 mg TID Patient Comments: Take 1 tablet by mouth three times a day as needed amoxicillin 500 mg capsule 500 mg PO BID Qty: 20 0RF Discharge Instructions Instructions: Polysubstance Abuse (ED), Opioid Safety (ED) Medical Decision Making 42-year-old female presents after overdose, patient that she was smoking crack, became apneic per friend, friend performed CPR, administered Narcan with immediate response. Blood sugar 200 in the field per EMS. Patient alert oriented moving all extremities following commands tolerating secretions normal respirations. Will observe for recrudescence of what appears to be an opioid overdose. If patient remains alert oriented with normal respirations she will be discharged home. Low suspicion for cardiac contusion pulmonary contusion rib fracture pneumothorax thermal injury or traumatic injury. 21: 37 patient alert oriented interactive hemodynamically stable no episodes of apnea or further altered mental status. Patient is returned to baseline. HPI General Date/Time Provider Initiated Documentation: 01/30/23 20:38 . HPI Narrative: 43-year-old female brought in by EMS after she overdosed after smoking what she thought was crack, friend performed CPR and administered Narcan with immediate response to baseline. Blood sugar 200 in the field. Related Data Home Medications Medication Instructions Recorded Confirmed sumatriptan succinate 100 mg See Rx Instructions PO .COMPLEX 04/28/21 10/06/22 tablet (Imitrex) #10 tabs amoxicillin 500 mg capsule 500 mg PO BID #20 caps 11/13/22 clonidine HCl 0.1 mg tablet 0.1 mg DAILY 11/13/22 11/13/22 hydroxyzine HCl 50 mg tablet 50 mg TID 11/13/22 11/13/22 Previous Rx's Medication Instructions Recorded sumatriptan succinate 100 mg See Rx Instructions PO .COMPLEX 04/28/21 tablet (Imitrex) #10 tabs amoxicillin 500 mg capsule 500 mg PO BID #20 caps 11/13/22 Allergies Allergy/AdvReac Type Severity Reaction Status Date / Time chlorhexidine Allergy Mild unknown Verified 01/30/23 20:54 [From Hibiclens] Sulfa (Sulfonamide Allergy Mild unknown Verified 01/30/23 20:54 Antibiotics) General NATHANIEL: 4 Review of Systems Narrative: Review of Systems Constitutional: Overdose Eyes: negative ENT: negative Cardiovascular: negative Respiratory: negative Gastrointestinal: negative : negative Musculoskeletal: negative Skin: negative Neurologic: negative Psych: negative PFSH All Active Problems (Updated 01/30/23 @ 21:40 by Anthony Jerome MD) Opioid intoxication with complication (Acute) Accidental overdose (Acute) Ulnar neuropathy of left upper extremity (Acute) PTSD (post-traumatic stress disorder) (Acute) Chronic headaches (Acute) Anxiety (Chronic) Irritable bowel (Chronic) Vulvar intraepithelial neoplasia (Acute) Lower back pain (Acute) UTI (urinary tract infection) (Acute) Menstrual abnormality (Acute) Ventral hernia (Acute) Migraine (Chronic) Thickened endometrium (Acute) Diastasis recti (Acute) RENEE III (vulvar intraepithelial neoplasia III) (Acute) DUB (dysfunctional uterine bleeding) (Acute) Medical History Deviated nasal septum Pyelonephritis RENEE III (vulvar intraepithelial neoplasia III) Surgical History section 2001, 2007, 2011 Family History Mother Fibrocystic breast changes Father Hyperlipidemia Hypertension Paternal Grandmother Breast cancer with recurrence Social History Smoking/Tobacco Use Status: Current every day Tobacco Type: cigarettes Smoking risk assessment performed?: Yes Alcohol Intake: current Alcohol Intake frequency: holidays/special occasions only Drug use: Occasionally Substance use type: marijuana and crack/cocaine Housing: house Current gender identity: female Additional Social history: patient says I dont know when asked about home safety. JuanRN 01/30/23 Exam Narrative Exam Narrative: Physical Examination General: alert, awake, cooperative, resting comfortably, no acute distress HEENT: normocephalic, atraumatic; PERRL, EOM intact, conjunctiva normal; no nasal discharge; moist mucous membranes, oral and pharyngeal mucosa normal, tolerating secretions Neck: supple, trachea midline; full ROM Chest: normal to inspection Respiratory: normal respiratory effort, speaking in full sentences, clear to auscultation, no wheezing, rales or rhonchi Cardiac: regular rate, regular rhythm, S1S2 intact, no murmurs rubs or gallops GI: abdomen soft, non-tender, non-distended; no palpable mass or hepatosplenomegaly Skin: no lesions, rashes or trauma appreciated Neuro: AAOx3, normal speech, moving all extremities Psych: Aggravated
[2023-01-30 21:24] LABS: *AMPHETAMINES SCREEN URINE Negative (Negative); *BARBITURATES SCREEN URINE Negative (Negative); *BENZODIAZEPINES SCREEN URINE Negative (Negative); Cannabinoids THC Negative (Negative); Cocaine Screen,Urine Positive (Negative); METHADONE URINE SCREEN Negative (Negative); OPIATES URINE SCREEN Negative (Negative)
[2023-01-30 21:25] LABS: Tricyclic Antidepressants Negative (Negative)
== END 2023-01-30 21:47 | disposition home or self-care (01) ==
PROVIDERS: Emergency Provider Emergency Medicine
DX: T40.2X1A Poisoning by other opioids, accidental (unintentional), initial encounter (principal); F11.120 Opioid abuse with intoxication, uncomplicated; F17.210 Nicotine dependence, cigarettes, uncomplicated; Y92.018 Other place in single-family (private) house as the place of occurrence of the external cause
CPT/HCPCS: 36415; 80307; 99283

== ENCOUNTER 2023-04-13 17:53 | Emergency (ER) | payer MEDICAID, SELFPAY ==
[2023-04-13 17:57] VITALS: BP 138/82; PULSE 102; RESP 16; TEMP 36.7; O2SAT 100
--- NOTE | 2023-04-13 18:15 | DI.RAD_ITS ---
Exam(s) XR FINGER RT MIDDLE EXAM: XR FINGER RT MIDDLE CLINICAL HISTORY: Cut finger on crack pipe, foreign body sensation. TECHNIQUE: 2D digital imaging was performed. COMPARISON: No exams were available for comparison FINDINGS: 3 views There is soft tissue disruption over the dorsal aspect of the mid finger level. No radiopaque foreig n body. No fractures. Bone density normal. No degenerative changes. IMPRESSION: Laceration but no acute osseous findings. DATA REPOSITORY: RADIATION DOSE DELIVERED:
[2023-04-13 18:17] VITALS: BP 138/82; PULSE 102; RESP 16; TEMP 36.7; O2SAT 100
--- NOTE | 2023-04-13 18:20 | ED.GENADUL_ITS ---
HPI General Date/Time Provider Initiated Documentation: 04/13/23 17:58 . Information obtained by: patient . HPI Narrative: The patient is a 43-year-old female with history of PTSD, anxiety who comes emergency department for right middle finger concern. The patient reports that she cut her right middle finger with a glass from her crack pipe maybe 4-5 days ago. Reports she has been taking care of it at home by keeping it clean and applying [id number] antibiotic. Reports initially after the injury she felt a foreign body sensation there but did not think much of it. Reports that she then formed a blood blister which she popped on her own. Reports finger is just getting worse and when the skin is moved it hurts more. Denies pain elsewhere on her hand. Denies fevers or chills. Denies numbness or tingly sensation. Reports she is right hand dominant. She is unsure of when her last tetanus immunization was. Related Data Home Medications Medication Instructions Recorded Confirmed sumatriptan succinate 100 mg See Rx Instructions PO .COMPLEX 04/28/21 04/13/23 tablet (Imitrex) #10 tabs amoxicillin 500 mg capsule 500 mg PO BID #20 caps 11/13/22 04/13/23 clonidine HCl 0.1 mg tablet 0.1 mg PO DAILY 11/13/22 04/13/23 hydroxyzine HCl 50 mg tablet 50 mg PO TID 11/13/22 04/13/23 doxycycline hyclate 100 mg capsule 100 mg PO BID 7 days #14 caps 04/13/23 Previous Rx's Medication Instructions Recorded sumatriptan succinate 100 mg See Rx Instructions PO .COMPLEX 04/28/21 tablet (Imitrex) #10 tabs amoxicillin 500 mg capsule 500 mg PO BID #20 caps 11/13/22 doxycycline hyclate 100 mg capsule 100 mg PO BID 7 days #14 caps 04/13/23 Allergies Allergy/AdvReac Type Severity Reaction Status Date / Time chlorhexidine Allergy Mild unknown Verified 04/13/23 18:16 [From Hibiclens] Sulfa (Sulfonamide Allergy Mild unknown Verified 04/13/23 18:16 Antibiotics) General Stated Complaint: Cellulitis NATHANIEL: 3 Review of Systems Narrative: Review of systems are negative except as mentioned. Constitutional Constitutional: Denies fever(s) Cardiovascular Comments: No chest pain. Respiratory Comments: No shortness of breath. Musculoskeletal Comments: Right middle finger pain. Integumentary/Breasts Comments: Right middle finger infection. Neurologic Comments: No numbness or tingly sensation to the fingers of the right hand. Exam Narrative Exam Narrative: The patient is in no acute distress. Patient is calm and cooperative. Heart is regular in rate and rhythm. Lungs are clear to auscultation. The patient does not have any fusiform swelling to the left middle finger. She does not have tenderness palpation along the flexor tendon. She does not have limitation range of motion testing to the right middle finger. She has no proximal lymphangitic streak. There is no fingers of the right hand are no ntender to palpation. On the dorsum of the right middle finger the patient has an open ulceration and bleeding images is remaining of her blister That has since been removed. There is mild increased warmth with pressure to the region. Patient reports capillary refill to the tip of the left middle finger. Course Vital Signs Vital signs: Vital Signs Temperature 36.7 C 04/13/23 17:57 Pulse 102 H 04/13/23 17:57 Respiratory Rate 16 04/13/23 17:57 Blood Pressure 138/82 04/13/23 17:57 Pulse Oximetry 100 04/13/23 17:57 Temperature 36.7 C 04/13/23 18:17 Temperature Source Skin 04/13/23 18:17 Pulse 102 H 04/13/23 18:17 Respiratory Rate 16 04/13/23 18:17 Respiratory Effort Normal, Non-Labored 04/13/23 18:17 Blood Pressure 138/82 04/13/23 18:17 Blood Pressure Position Sitting 04/13/23 18:17 Pulse Oximetry 100 04/13/23 18:17 Oxygen Delivery Method Room Air 04/13/23 18:17 Oxygen Flow Rate 0 04/13/23 18:17 Pain Level 9 04/13/23 18:17 Lab/Test Results Lab/Test Results: Finger x-ray showed as interpreted by radiologist: Laceration without discrete radiopaque foreign body. No acute fracture. Medical Decision Making Because the patient reports a foreign body sensation to the finger evaluated and x-ray. It is presumably a dorsal glass so it should be radiopaque. On review of her medical records her last tetanus immunization was 2016 so she should be up-to-date. I ordered an antibiotic now awaiting for x-ray, 100 mg p.o. doxycycline. Further relief. LET as well. After x-rays do home you will need to be cleansed carefully. The patient's wound was cleansed by Carmela LING. She is given wound mathematics technician and manuka honey ointment along with instructions for use. X-ray shows no radiopaque foreign body and no fracture. I updated the patient of work-up result and plan for discharge. I sent a prescription for more antibiotics to her preferred pharmacy. She is asked to follow-up with her primary care doctor and given strict instructions to return to the Emergency Department immediately with any worsening symptoms or any other concerns, in particular any signs of flexor tenosynovitis which I explained to her. The patient voiced understanding of this plan and agreed. Quality:SDOH Health Related Social Needs: No Data to Display PFSH All Active Problems (Updated 04/13/23 @ 19:16 by Melanie Shen DO) Infected wound (Acute) Ulnar neuropathy of left upper extremity (Acute) PTSD (post-traumatic stress disorder) (Acute) Chronic headaches (Acute) Anxiety (Chronic) Irritable bowel (Chronic) Vulvar intraepithelial neoplasia (Acute) Lower back pain (Acute) UTI (urinary tract infection) (Acute) Menstrual abnormality (Acute) Ventral hernia (Acute) Migraine (Chronic) Thickened endometrium (Acute) Diastasis recti (Acute) RENEE III (vulvar intraepithelial neoplasia III) (Acute) DUB (dysfunctional uterine bleeding) (Acute) Medical History Deviated nasal septum Pyelonephritis RENEE III (vulvar intraepithelial neoplasia III) Surgical History section 2001, 2007, 2011 Family History Mother Fibrocystic breast changes Father Hyperlipidemia Hypertension Paternal Grandmother Breast cancer with recurrence Social History Smoking/Tobacco Use Status: Current every day Tobacco Type: cigarettes Smoking risk assessment performed?: Yes Alcohol Intake: current Alcohol Intake frequency: holidays/special occasions only Drug use: Occasionally Substance use type: marijuana and crack/cocaine Housing: house Current gender identity: female Additional Social history: patient says I dont know when asked about home safety. JuanRN 01/30/23 Discharge Plan Disposition Patient Disposition: Home Condition: Stable Discharge Details Clinical Impression: Infected wound Primary Care Provider: Unknown,Unknown ED Provider: Melanie Shen Home Meds and New Rx's Prescriptions: New doxycycline hyclate 100 mg capsule 100 mg PO BID 7 Days Qty: 14 0RF No Action sumatriptan succinate [Imitrex] 100 mg tablet See Rx Instructions PO .COMPLEX Qty: 10 3RF Patient Comments: pt states not taking 11/13/22 Rx Instructions: take 1 tab at onset of headache; if no relief, may repeat 1 tab after at least 2 hrs; max = 2 tabs/24 hrs PO clonidine HCl 0.1 mg tablet 0.1 mg PO DAILY Patient Comments: Take 1 tablet by mouth every night hydroxyzine HCl 50 mg tablet 50 mg PO TID Patient Comments: Take 1 tablet by mouth three times a day as needed amoxicillin 500 mg capsule 500 mg PO BID Qty: 20 0RF Discharge Instructions Instructions: Wound Infection (ED) Additional Instructions: Take your antibiotics as prescribed. Keep your wound clean and dry. Wash with warm water and soap, dry your finger, apply antiseptic spray, let air dry then apply the manuka honey ointment. Keep covered. Follow-up with your primary care doctor. Return to the Emergency Department with any worsening symptoms or any other concerns as discussed.
[2023-04-13] MEDS: Lidocaine/Epinephri/Tetracaine Topical Gel 3 ML TP (18:25)
[2023-04-13] MEDS: Doxycycline Hyclate 100 MG CAP PO (18:25)
--- NOTE | 2023-04-13 19:08 | DI.VRAD_ITS ---
PROCEDURE INFORMATION: Exam: XR Right Finger(s) Exam date and time: 04/13/2023 6:40 PM Age: 42 years old Clinical indication: Injury or trauma; Other: Cut finger; Blunt trauma (contusions or hematomas); Right; Injury details: R/O foreign body, cut RT middle finger TECHNIQUE: Imaging protocol: Radiologic exam of the right fingers. Views: Minimum 2 views. COMPARISON: CR XR ELBOW RT COMPLETE 10/20/2022 3:52 PM FINDINGS: Bones/joints: No acute fracture or dislocation Soft tissues: Laceration in the 3rd finger. No radiopaque foreign body IMPRESSION: Laceration without discrete radiopaque foreign body No acute fracture Dictated and Authenticated by: David Perez MD. Ordering:FIFI Navarro MD
--- NOTE | 2023-04-13 19:11 | NUR.NOTE ---
Nursing Note: RT middle finger wound cleansed per MD order. Finger cleansed w/ wound cleanser spray and irrigated with sterile water. Therahoney applied to wound bed and telfa gauze placed over wound. Wound wrapped with bulky dressing; tape used to secure. Pt tolerated procedure well. Pt sent home with wound cleanser bottle and therahoney in addition to wound dressing supplies.
== END 2023-04-13 19:23 | disposition home or self-care (01) ==
PROVIDERS: Emergency Provider Emergency Medicine
DX: S61.212A Laceration without foreign body of right middle finger without damage to nail, initial encounter (principal); L08.9 Local infection of the skin and subcutaneous tissue, unspecified; F17.210 Nicotine dependence, cigarettes, uncomplicated; W25.XXXA Contact with sharp glass, initial encounter
CPT/HCPCS: 99283; 73140

== ENCOUNTER 2023-06-30 11:26 | Emergency (ER) | payer MEDICAID, SELFPAY ==
[2023-06-30 11:42] VITALS: BP 159/80; PULSE 103; RESP 18; TEMP 37.3; O2SAT 99
== END 2023-06-30 13:35 | disposition left against medical advice (07) ==
LOC: ER 12:31
DX: Z53.21 Procedure and treatment not carried out due to patient leaving prior to being seen by health care provider (principal)

== ENCOUNTER 2023-08-01 23:07 | Emergency (ER) | payer MEDICAID, SELFPAY ==
[2023-08-01 23:10] VITALS: BP 127/44; PULSE 85; RESP 16; TEMP 36.1; O2SAT 98
[2023-08-01 23:15] VITALS: BP 127/44; PULSE 85; RESP 16; TEMP 36.1; O2SAT 98
--- NOTE | 2023-08-01 23:36 | ED.GENADUL_ITS ---
Discharge Plan Disposition Patient Disposition: Home Condition: Good Discharge Details Clinical Impression: Vomiting Primary Care Provider: Unknown,Unknown ED Provider: Katie Lainez Home Meds and New Rx's Prescriptions: New ondansetron 4 mg tablet,disintegrating 4 mg PO Q8H PRNQty: 10 0RF Continued sumatriptan succinate [Imitrex] 100 mg tablet See Rx Instructions PO .COMPLEX Qty: 10 3RF Patient Comments: pt states not taking 11/13/22 Rx Instructions: take 1 tab at onset of headache; if no relief, may repeat 1 tab after at least 2 hrs; max = 2 tabs/24 hrs PO clonidine HCl 0.1 mg tablet 0.1 mg PO DAILY Patient Comments: Take 1 tablet by mouth every night hydroxyzine HCl 50 mg tablet 50 mg PO TID Patient Comments: Take 1 tablet by mouth three times a day as needed Discharge Instructions Instructions: Acute Nausea and Vomiting (ED) Additional Instructions: Ondansetron up to every 8 hours as needed for vomiting. Call your primary care doctor today to schedule an appointment within the next 3 days to followup on your visit here. Return to the emergency department for new or worsening symptoms including fever, abdominal pain, inability to keep down fluids, or if you have any other concerns. HPI General Mode of arrival: ambulatory . Date/Time Provider Initiated Documentation: 08/01/23 23:09 . Limitations to Documentation: no limitations . Information obtained by: patient . HPI Narrative: 43yo F with hx migraines presenting for nausea and vomiting for 12 hours. Reports symptoms started just after using: they gave me the wrong drugs. Thinks she may have gotten fentanyl instead of crack. N/V started immediately after using. No abdominal pain, diarrhea, dysuria, or hematuria. Reports mild headache that started about 8 hours into her symptoms, not similar to her prior migraines. No fevers, chills, rash, numbness, tingling, weakness, neck pain, chest pain, shortness of breath, or other concerns. Related Data Home Medications Medication Instructions Recorded Confirmed sumatriptan succinate 100 mg See Rx Instructions PO .COMPLEX 04/28/21 08/01/23 tablet (Imitrex) #10 tabs clonidine HCl 0.1 mg tablet 0.1 mg PO DAILY 11/13/22 08/01/23 hydroxyzine HCl 50 mg tablet 50 mg PO TID 11/13/22 08/01/23 ondansetron 4 mg disintegrating 4 mg PO Q8H PRN #10 tabs 08/02/23 tablet Previous Rx's Medication Instructions Recorded sumatriptan succinate 100 mg See Rx Instructions PO .COMPLEX 04/28/21 tablet (Imitrex) #10 tabs ondansetron 4 mg disintegrating 4 mg PO Q8H PRN #10 tabs 08/02/23 tablet Allergies Allergy/AdvReac Type Severity Reaction Status Date / Time chlorhexidine Allergy Mild unknown Verified 08/01/23 23:18 [From Hibiclens] Sulfa (Sulfonamide Allergy Mild unknown Verified 08/01/23 23:18 Antibiotics) General Stated Complaint: Nausea/Vomit/Diar NATHANIEL: 4 Review of Systems Narrative: see HPI Exam Narrative Exam Narrative: General: Alert, well appearing, well nourished, in no acute distress. Head: Normocephalic, atraumatic Neck: Trachea midline, ?Neck supple. Full pain-free ROM at neck. ENT: ?MMM.? No oropharygeal lesions or exudate. Cardiac: ?RRR, no murmurs appreciated Resp: No respiratory distress. CTAB. Abd: ?Soft, non-distended, nontender : ?No suprapubic tenderness. No CVA tenderness. Extremities: ?No deformities.? No peripheral edema. Neurologic: GCS 15. ? Moves all extremities freely against gravity Course Vital Signs Vital signs: Vital Signs Temperature 36.1 C L 08/01/23 23:10 Pulse 85 08/01/23 23:10 Respiratory Rate 16 08/01/23 23:10 Blood Pressure 127/44 L 08/01/23 23:10 Pulse Oximetry 98 08/01/23 23:10 Temperature 36.1 C L 08/01/23 23:15 Temperature Source Temporal Artery Scan 08/01/23 23:15 Pulse 85 08/01/23 23:15 Respiratory Rate 16 08/01/23 23:15 Respiratory Effort Normal, Non-Labored 08/01/23 23:14 Blood Pressure 127/44 L 08/01/23 23:15 Blood Pressure Position Sitting 08/01/23 23:15 Pulse Oximetry 98 08/01/23 23:15 Oxygen Delivery Method Room Air 08/01/23 23:15 Oxygen Flow Rate 0 08/01/23 23:15 Pain Level 5 08/01/23 23:15 Medical Decision Making 43yo F with hx migraines presenting for nausea and vomiting for 12 hours. Reports symptoms started just after using: they gave me the wrong drugs. Thinks she may have gotten fentanyl instead of crack. N/V started immediately after using. Vital signs reassuring on arrival, no abdominal tenderness on exam, no meningismus. Not septic. History and exam not suggestive of SAH, intracranial mass, meningitis; would not LP or get CT imaging. Low suspicion for acute intrabdominal process given benign abdominal exam; will not get CT abd/pelvis. Will treat symptoms with IV zofran, give 1L IVFB. Labs reviewed as below, CBC with no leukocytosis or anemia, CMP reassuring with no significant electrolyte abnormalities and normal Cr, lactate normal PO challenged and tolerated well. On reassessment remains non-toxic appearing with reassuring vital signs, benign abdominal exam. Discharged home with prescription for zofran; discharge instructions and return precautions were reviewed with patient who verbalized understanding. All questions were answered and she is in full agreement with the plan. Lab Data Lab results reviewed: Yes I reviewed the patient's lab results. Labs: Laboratory Tests Range/Units 08/01/23 23:35 WBC (4.4-10.8) 10^3/uL 8.01 RBC (3.93-5.22) 10^6/uL 4.48 Hgb (11.2-15.7) g/dL 13.1 Hct (36.0-46.0) % 40.5 MCV (80-95) fL 90 MCH (27.0-33.0) pg 29.2 MCHC (32.0-36.0) % 32.3 RDW (11.7-14.6) % 13.9 Plt Count (130-400) 10^3/uL 202 MPV (8.0-11.0) fL 12.1 H Immature Gran % % 0.2 Neutrophils % % 77.9 Lymphocytes % % 15.4 Monocytes % % 5.6 Eosinophils % % 0.4 Basophils % % 0.5 Nucleated RBC % (0.0-0.3) % 0.0 Absolute Neutrophils (1.2-6.7) 10^3/uL 6.24 Absolute Lymphocytes (1.2-3.4) 10^3/uL 1.23 Absolute Monocytes (0.1-0.8) 10^3/uL 0.45 Absolute Eosinophils (0.0-0.7) 10^3/uL 0.03 Absolute Basophils (0.0-0.2) 10^3/uL 0.04 VBG Lactate (0.6-1.4) mmol/L 1.0 Sodium (136-145) mmol/L 144 Potassium (3.5-5.1) mmol/L 4.2 Chloride (98-107) mmol/L 106 Carbon Dioxide (21.0-32.0) mmol/L 26.6 Anion Gap (3-11) mmol/L 11.4 H BUN (7-18) mg/dL 16 Creatinine (0.55-1.02) mg/dL 0.8 Est GFR (CKD-EPI 2020) (mL/min/1.73m2) 93.70 Glucose (74-106) mg/dL 103 Calcium (8.5-10.1) mg/dL 9.3 Total Bilirubin (0.2-1.0) mg/dL 0.6 AST (15-37) U/L 19 ALT (14-59) U/L 23 Alkaline Phosphatase (46-116) U/L 76 Total Protein (6.4-8.2) g/dL 7.3 Albumin (3.4-5.0) g/dL 4.2 Quality:SDOH Health Related Social Needs: No Data to Display PFSH All Active Problems (Updated 08/02/23 @ 01:20 by Katie Lainez MD) Vomiting (Acute) Ulnar neuropathy of left upper extremity (Acute) PTSD (post-traumatic stress disorder) (Acute) Chronic headaches (Acute) Anxiety (Chronic) Irritable bowel (Chronic) Vulvar intraepithelial neoplasia (Acute) Lower back pain (Acute) UTI (urinary tract infection) (Acute) Menstrual abnormality (Acute) Ventral hernia (Acute) Migraine (Chronic) Thickened endometrium (Acute) Diastasis recti (Acute) RENEE III (vulvar intraepithelial neoplasia III) (Acute) DUB (dysfunctional uterine bleeding) (Acute) Medical History Deviated nasal septum Pyelonephritis RENEE III (vulvar intraepithelial neoplasia III) Surgical History section 2001, 2007, 2011 Family History Mother Fibrocystic breast changes Father Hyperlipidemia Hypertension Paternal Grandmother Breast cancer with recurrence Social History Smoking/Tobacco Use Status: Current every day Tobacco Type: cigarettes and e- cigarettes Smoking risk assessment performed?: Yes Alcohol Intake: current Alcohol Intake frequency: holidays/special occasions only Drug use: Occasionally Substance use type: crack/cocaine Details: last use 1030am today 08/01/23 Housing: homeless Current gender identity: female Do you feel safe at home: No Do you feel safe in your relationship?: No
[2023-08-01 23:42] LABS: Abs Immature Grans 0.02 10^3/uL (0.0-0.06); Absolute Basophil Count 0.04 10^3/uL (0.0-0.2); Absolute Eosinophil Count 0.03 10^3/uL (0.0-0.7); Absolute Lymphocyte Count 1.23 10^3/uL (1.2-3.4); Absolute Monocyte Count 0.45 10^3/uL (0.1-0.8); Absolute Neutrophil Count 6.24 10^3/uL (1.2-6.7); Basophils % 0.5 %; Eosinophils % 0.4 %; HCT 40.5 % (36.0-46.0); HGB 13.1 g/dL (11.2-15.7); Immature Grans % 0.2 %; Lymphocytes % 15.4 %; MCH 29.2 pg (27.0-33.0); MCHC 32.3 % (32.0-36.0); MCV 90 fL (80-95); MPV 12.1 fL (8.0-11.0); Monocytes % 5.6 %; Neutrophils % 77.9 %; Platelet Count 202 10^3/uL (130-400); RBC 4.48 10^6/uL (3.93-5.22); RDW 13.9 % (11.7-14.6); RDW-SD 46.1 fL; WBC 8.01 10^3/uL (4.4-10.8)
[2023-08-01] MEDS: Normal Saline 1,000 ML 1000 ML IV (23:43)
[2023-08-01] MEDS: Ondansetron 4 MG/2 ML VIAL IVP (23:44)
[2023-08-02 00:12] LABS: ALT 23 U/L (14-59); AST 19 U/L (15-37); Albumin 4.2 g/dL (3.4-5.0); Alkaline Phosphatase 76 U/L (46-116); Anion Gap 11.4 mmol/L (3-11); BUN 16 mg/dL (7-18); Bilirubin, Total 0.6 mg/dL (0.2-1.0); CO2 26.6 mmol/L (21.0-32.0); CREATININE 0.8 mg/dL (0.55-1.02); Calcium 9.3 mg/dL (8.5-10.1); Chloride 106 mmol/L (98-107); Glucose 103 mg/dL (74-106); Potassium 4.2 mmol/L (3.5-5.1); Sodium 144 mmol/L (136-145); Total Protein 7.3 g/dL (6.4-8.2)
[2023-08-02] MEDS: Ondansetron O.D.T. 4 MG TABEF, 3 TABS/BTL PO (02:46)
== END 2023-08-02 02:46 | disposition home or self-care (01) ==
PROVIDERS: Emergency Provider Student in an Organized Health Care Education/Training Program
DX: R11.2 Nausea with vomiting, unspecified (principal); F11.90 Opioid use, unspecified, uncomplicated
CPT/HCPCS: 36415; 80053; 96361; 96374; 99284; 83605; 85025; 99283; J2405

== ENCOUNTER 2023-09-18 01:38 | Emergency (ER) | payer MEDICAID, SELFPAY ==
[2023-09-18 01:40] VITALS: BP 110/83; PULSE 83; RESP 18; TEMP 37.2; O2SAT 97
--- NOTE | 2023-09-18 01:44 | ED.GENADUL_ITS ---
Discharge Plan Disposition Patient Disposition: Home Condition: Good Discharge Details Clinical Impression: Dog bite of right hand Primary Care Provider: None,None ED Provider: Addy Corral and New Rx's Prescriptions: New amoxicillin-pot clavulanate 875-125 mg tablet 1 tab PO BID Qty: 14 0RF Discharge Instructions Instructions: Animal Bites ED Additional Instructions: You were seen in the ED for a dog bite to your right hand. X-rays reveal no fracture and no evidence of foreign body. Keep your hand elevated to help with swelling. You may soak your hand in half peroxide/half water couple times a day. Take antibiotic as prescribed. Alternate acetaminophen with ibuprofen for pain. Follow-up with primary care later this week for recheck. Return to ED for increasing pain, swelling, redness, fever, other concerns. HPI General Mode of arrival: ambulatory . Date/Time Provider Initiated Documentation: 09/18/23 01:44 . Limitations to Documentation: no limitations . Information obtained by: patient, RN notes reviewed and old records reviewed . HPI Narrative: Patient presents to the ED with dog bite to her right hand. Patient is right- hand dominant. Patient reports that her friend's dog was with her in the car. Dog is aggressive toward other dogs. She had stopped to get directions from somebody. There was a dog in that person's vehicle. She put her hand up to block her friend's dog from jumping out the window. Dog nipped at her causing injury to her right long and ring finger. She is unsure of the dog's rabies vaccination but it is her friends pet. She is also unsure of her last tetanus status. She denies injury elsewhere. Injury occurred a couple of hours ago. Related Data Home Medications Medication Instructions Recorded Confirmed amoxicillin 875 mg-potassium 1 tab PO BID #14 tabs 09/18/23 clavulanate 125 mg tablet Previous Rx's Medication Instructions Recorded amoxicillin 875 mg-potassium 1 tab PO BID #14 tabs 09/18/23 clavulanate 125 mg tablet Allergies Allergy/AdvReac Type Severity Reaction Status Date / Time chlorhexidine Allergy Mild unknown Verified 08/01/23 23:18 [From Hibiclens] Sulfa (Sulfonamide Allergy Mild unknown Verified 08/01/23 23:18 Antibiotics) General Stated Complaint: AnimalBite NATHANIEL: 4 Review of Systems Narrative: Per HPI Exam Narrative Exam Narrative: Const: WDWN female in NAD. VS per triage. HEENT: NC/AT. Normal facial exam. Neck: Supple. Trachea midline. Lungs: Normal respiratory effort. Neuro: A+O x 3. Cranial nerves II - XII grossly intact. No gross motor or sensory deficit. Ext: No C/C/E. Right hand with puncture wound to the dorsum of the mid ring finger and the cuticle area of the long finger. Swelling present in both fingers. No injury noted elsewhere. ROM of fingers is normal. Course Vital Signs Vital signs: Vital Signs Temperature 99.0 F 09/18/23 01:40 Pulse 83 09/18/23 01:40 Respiratory Rate 18 09/18/23 01:40 Blood Pressure 110/83 09/18/23 01:40 Pulse Oximetry 97 09/18/23 01:40 Temperature 99.0 F 09/18/23 01:40 Temperature Source Skin 09/18/23 01:40 Pulse 83 09/18/23 01:40 Respiratory Rate 18 09/18/23 01:40 Blood Pressure 110/83 09/18/23 01:40 Blood Pressure Position Sitting 09/18/23 01:40 Pulse Oximetry 97 09/18/23 01:40 Oxygen Delivery Method Room Air 09/18/23 01:40 Oxygen Flow Rate 0 09/18/23 01:40 Medical Decision Making Patient presenting to ED with dog bite to the right hand involving the distal long finger and mid ring finger dorsally. He is a puncture wounds and not lacerations. There is no other apparent puncture or wound noted. Range of motion is present. Ring on the long finger was cut off due to swelling. Last tetanus was 2016 so this was updated. She was given a shot of ketorolac for pain. She was given Augmentin. An x-ray of the right hand was obtained. Per my read there is no fracture and no evidence of foreign body. Patient's friend is the owner spa director of this pet dog. Patient instructed to determine rabies status from her friend. Dog bite form filled out by community development planner for [facility]. Bj germain instructed to keep her hand elevated. She should soak in peroxide and water couple times a day. Be sure to take her antibiotic as directed. Follow- up with primary care later this week for wound check. Return precautions provided. Medical Records Medical records reviewed: Yes I reviewed the patient's medical records. Medical records narrative: last tetanus was 2017 Imaging Data Radiologic Study: Attestation: I personally reviewed and interpreted this imaging study as follows: Imaging: X-Ray My impression: Right hand x-ray with no evidence of fracture or foreign body. PFSH All Active Problems (Updated 09/18/23 @ 02:26 by Addy Corral MD) Dog bite of right hand (Acute) Deviated nasal septum (Acute) Ulnar neuropathy of left upper extremity (Acute) Chronic headaches (Acute) Anxiety (Chronic) Irritable bowel (Chronic) Vulvar intraepithelial neoplasia (Acute) Lower back pain (Acute) UTI (urinary tract infection) (Acute) Menstrual abnormality (Acute) Ventral hernia (Acute) Migraine (Chronic) Thickened endometrium (Acute) Diastasis recti (Acute) DUB (dysfunctional uterine bleeding) (Acute) Medical History PTSD (post-traumatic stress disorder) RENEE III (vulvar intraepithelial neoplasia III) Surgical History section 2001, 2007, 2011 Family History Mother Fibrocystic breast changes Father Hyperlipidemia Hypertension Paternal Grandmother Breast cancer with recurrence Social History Smoking/Tobacco Use Status: Current every day Tobacco Type: cigarettes and e- cigarettes Smoking risk assessment performed?: Yes Alcohol Intake: current Alcohol Intake frequency: holidays/special occasions only Drug use: Occasionally Substance use type: crack/cocaine Details: last use 1030am today 08/01/23 Housing: homeless Current gender identity: female Do you feel safe at home: No Do you feel safe in your relationship?: No
--- NOTE | 2023-09-18 01:45 | DI.RAD_ITS ---
Exam(s) XR HAND RT COMPLETE EXAM: XR HAND RT COMPLETE CLINICAL HISTORY: dog bite. TECHNIQUE: 2D digital imaging was performed of the right hand. Three images were obtained. AP, late ral and oblique views were obtained. COMPARISON: CR,XR XR FINGER RT MIDDLE from 04/13/2023 FINDINGS: BONES: No acute fracture is present. No bony destructive lesion is seen. JOINTS: No dislocation present. The joint spaces are well maintained. SOFT TISSUE: No subcutaneous gas is seen. There is a single radiopaque density at the distal finger nail of the 3rd finger and 2 tiny densities associated with the femoral of the 2nd finger nail. IMPRESSION: 1. No acute fracture or dislocation. No subcutaneous gas is identified. 2. Radiopaque densities associated with the 2nd and 3rd fingernails. Please correlate clinically. DATA REPOSITORY: RADIATION DOSE DELIVERED:
[2023-09-18] MEDS: Tetanus & Diphtheria Tox,ADULT 0.5 ML VIAL IM (02:02)
[2023-09-18] MEDS: Amoxicillin 875/Clav. 125 TAB PO (02:02)
[2023-09-18] MEDS: Ketorolac 30 MG/ML VIAL IM (02:30)
--- NOTE | 2023-09-18 03:43 | DI.VRAD_ITS ---
PROCEDURE INFORMATION: Exam: XR Right Hand Exam date and time: 09/18/2023 2:12 AM Age: 43 years old Clinical indication: Injury or trauma; Other: Dog bite; Hand; Right; Injury date: 09/18/23 TECHNIQUE: Imaging protocol: Radiologic exam of the right hand. Views: 3 or more views. COMPARISON: CR XR FINGER RT MIDDLE 04/13/2023 6:40 PM FINDINGS: Bones/joints: Three views of the right hand reveal no acute fracture or dislocation. No gross focal soft tissue swelling is seen. Soft tissues: There are punctate radiodensities along the radial aspect of the distal fingertips of the 2nd and 3rd digits, apparently associated with the fingernails, probably either on or under the nails. No gross focal soft tissue abnormality is demonstrated. IMPRESSION: 1. No acute fracture or dislocation seen in the right hand. 2. Clinical correlation is recommended to assess for radiodense foreign debris associated with the fingernails of the 2nd and 3rd digits, as described. Dictated and Authenticated by: Олег Corcoran MD. Ordering:DINH Daly MD
== END 2023-09-18 02:31 | disposition home or self-care (01) ==
LOC: ER 02:35
PROVIDERS: Emergency Provider Emergency Medicine
DX: S61.232A Puncture wound without foreign body of right middle finger without damage to nail, initial encounter (principal); S61.234A Puncture wound without foreign body of right ring finger without damage to nail, initial encounter; Z23 Encounter for immunization; F17.210 Nicotine dependence, cigarettes, uncomplicated; F17.290 Nicotine dependence, other tobacco product, uncomplicated; W54.0XXA Bitten by dog, initial encounter; Y93.89 Activity, other specified; Y92.810 Car as the place of occurrence of the external cause
CPT/HCPCS: 90471; 90714; 99283; 73130; J1885

== ENCOUNTER 2023-10-18 13:21 | Emergency (ER) | payer MEDICAID, SELFPAY ==
[2023-10-18] VITALS (14 sets, daily range): BP systolic 100–141; BP diastolic 66–85; PULSE 71–87; RESP 16–20; TEMP 36.5–37.1; O2SAT 97–100
[2023-10-18 14:45] LABS: Bilirubin Negative (Negative); Blood Moderate (Negative); Clarity Cloudy (Clear); Glucose Negative (Negative); Ketones Negative (Negative); Leukocyte Esterase Small (Negative); Nitrite Negative (Negative); Urobilinogen 0.2 mg/dL (Up to 0.2)
--- NOTE | 2023-10-18 14:50 | W.ED.GENAD ---
Discharge Plan Discharge Details Chief Complaint: Urinary Primary Care Provider: None,None ED Provider: Marge Trimble Home Meds and New Rx's Prescriptions: No Action No Known Home Meds [facility] General Mode of arrival: ambulatory. Date/Time Provider Initiated Documentation: 10/18/23 13:59. Limitations to Documentation: no limitations. Information obtained by: patient, RN notes reviewed and old records reviewed. HPI Narrative: 43-year-old female presents to the ER with a chief complaint of bilateral flank pain worse on the right, subjective fever and chills, worsening over the last few days. Denies any dysuria or problems urinating. Denies any vaginal discharge or bleeding. Reports nausea and no vomiting. Past medical history includes PTSD vulvar intraepithelial neoplasia type 3, chronic low back pain, . She does endorse smoking crack, denies any other drugs or alcohol denies smoking cigarrettes. Related Data Home Medications ?Medication ?Instructions ?Recorded ?Confirmed Unknown [No Known Home Meds] 10/18/23 10/18/23 Allergies Allergy/AdvReac Type Severity Reaction Status Date / Time chlorhexidine (From Allergy Mild unknown Verified 10/18/23 15:02 Hibiclens) Sulfa (Sulfonamide Allergy Mild unknown Verified 10/18/23 15:02 Antibiotics) General Stated Complaint: Urinary NATHANIEL: 3 Review of Systems All systems reviewed & are unremarkable except as noted in HPI and below Gastrointestinal Gastrointestinal: Reports abdominal pain, Denies diarrhea, Denies loose stools, Reports nausea and Denies vomiting Genitourinary Genitourinary: Denies abnormal vaginal bleeding, Reports flank pain, Denies vaginal discharge, Denies vaginal odor and Denies vaginal pruritus Exam Narrative Exam Narrative: Constitutional: Alert and oriented x3. Appears stated age. Normal body habitus. Head: Normocephalic, no trauma. Eyes: Pupils PERRL, Red reflex noted, EOM's intact. Eyelids symmetrical without lesions, discharge, or swelling. ENT: Bilateral TM's WNL, External ear normal to inspection, no mastoid TTP, swelling, or erythema, Nasal turbinates WNL, no nasal discharge. Normal dentition, Posterior pharynx WNL, no exudate. Chest: RRR, Normal S1, S2, distal pulses intact. Resp: Lungs clear to auscultation bilaterally, no wheezes, rales, or rhonchi. Abdomen: Soft, non-distended, Normoactive bowel sounds all 4 quads. Musculoskeletal: Normal gait, Moves all 4 extremities without difficulty. Does have some lower lumbar spinous tenderness, does have some bilateral CVA tenderness to palpation. Skin: No suspicious rashes or lesions. Capillary refill less than 2 sec. Neurologic: Cranial nerves II-XII intact. Alert and oriented x 3. Motor: No deficits noted. Sensory: Intact bilaterally all 4 extremities. Hematologic/Lymphatic: No ecchymosis, no lymphadenopathy. Course Vital Signs Vital signs: Vital Signs Temperature 36.9 C 10/18/23 13:25 Pulse 84 10/18/23 13:25 Respiratory Rate 16 10/18/23 13:25 Blood Pressure 100/70 10/18/23 13:25 Pulse Oximetry 97 10/18/23 13:25 Temperature 36.9 C 10/18/23 13:25 Temperature Source Temporal Artery Scan 10/18/23 13:25 Pulse 84 10/18/23 13:25 Respiratory Rate 16 10/18/23 13:25 Blood Pressure 100/70 10/18/23 13:25 Blood Pressure Position Sitting 10/18/23 13:25 Pulse Oximetry 97 10/18/23 13:25 Oxygen Delivery Method Room Air 10/18/23 13:25 Oxygen Flow Rate 0 10/18/23 13:25 Pain Level 7 10/18/23 13:25 Lab/Test Results Lab/Test Results: Laboratory Tests Range/Units 10/18/23 14:30 Urine Color (Yellow) Yellow Urine Clarity (Clear) Cloudy Urine pH (5-8) 6.0 Ur Specific [place] (1.005-1.025) 1.020 Urine Protein (Neg-Trace) mg/dL Negative Urine Ketones (Negative) mg/dL Negative Urine Blood (Negative) Moderate H Urine Nitrite (Negative) Negative Urine Bilirubin (Negative) Negative Urine Urobilinogen (Up to 0.2) mg/dL 0.2 Ur Leukocyte Esterase (Negative) Small H Urine Glucose (Negative) mg/dL Negative POC- Test(urine) Negative Medical Decision Making 43-year-old female presents to the ER with a chief complaint of bilateral flank pain worse on the right, subjective fever and chills, worsening over the last few days. Denies any dysuria or problems urinating. Denies any vaginal discharge or bleeding. Reports nausea and no vomiting. Past medical history includes PTSD vulvar intraepithelial neoplasia type 3, chronic low back pain, . She does endorse smoking crack, denies any other drugs or alcohol denies smoking cigarrettes. On exam she is alert and oriented x 4, vital signs are stable. CBC CMP, lipase urinalysis ordered renal ultrasound ordered due to lack of availability of CT imaging at this time. CBC shows no leukocytosis, all moderate blood on urinalysis small leukocytes 10-20 RBCs 20-50 WBCs culture is pending at this time. Will give gram of ceftriaxone IV piggyback along with 1 L normal saline, Toradol and Zofran. 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) Chronic headaches (Acute) Anxiety (Chronic) Irritable bowel (Chronic) Vulvar intraepithelial neoplasia (Acute) Lower back pain (Acute) UTI (urinary tract infection) (Acute) Menstrual abnormality (Acute) Ventral hernia (Acute) Migraine (Chronic) Thickened endometrium (Acute) Diastasis recti (Acute) DUB (dysfunctional uterine bleeding) (Acute) Medical History PTSD (post-traumatic stress disorder) RENEE III (vulvar intraepithelial neoplasia III) Surgical History section 2001, 2007, 2011 Family History Mother Fibrocystic breast changes Father Hyperlipidemia Hypertension Paternal Grandmother Breast cancer with recurrence Social History Smoking/Tobacco Use Status: Current every day Tobacco Type: cigarettes and e-cigarettes Smoking risk assessment performed?: Yes Alcohol Intake: current Alcohol Intake frequency: holidays/special occasions only Drug use: Occasionally Substance use type: crack/cocaine Details: last use 1030am today 08/01/23 Housing: homeless Current gender identity: female Do you feel safe at home: No Do you feel safe in your relationship?: No Sign Out Sign Out Data: Sign Out Comment: Here with bilateral flank pain, chills and subjective fever for 2 to 3 days. Pending renal ultrasound, does have RBCs 20-50 WBCs on urinalysis. Given 1 g Rocephin IV piggyback, Toradol 15 mg IV, Zofran 4 mg IV, liter of fluid. Most likely disposition discharge with antibiotics for pyelonephritis and referral to [facility] for cocaine use, I did offer patient declined at this time. Last updated by Marge Trimble NP at 10/18/23 15:32
[2023-10-18 14:51] LABS: Abs Immature Grans 0.01 10^3/uL (0.0-0.06); Absolute Basophil Count 0.03 10^3/uL (0.0-0.2); Absolute Eosinophil Count 0.08 10^3/uL (0.0-0.7); Absolute Lymphocyte Count 1.67 10^3/uL (1.2-3.4); Absolute Monocyte Count 0.84 10^3/uL (0.1-0.8); Absolute Neutrophil Count 4.43 10^3/uL (1.2-6.7); Basophils % 0.4 %; Eosinophils % 1.1 %; HCT 39.4 % (36.0-46.0); HGB 12.8 g/dL (11.2-15.7); Immature Grans % 0.1 %; Lymphocytes % 23.7 %; MCH 29.6 pg (27.0-33.0); MCHC 32.5 % (32.0-36.0); MCV 91 fL (80-95); MPV 12.4 fL (8.0-11.0); Monocytes % 11.9 %; Neutrophils % 62.8 %; Platelet Count 165 10^3/uL (130-400); RBC 4.32 10^6/uL (3.93-5.22); RDW 14.9 % (11.7-14.6); RDW-SD 49.9 fL; WBC 7.06 10^3/uL (4.4-10.8)
[2023-10-18 14:52] LABS: WBC 20-50 HPF (0-5)
[2023-10-18 14:53] LABS: Bacteria Moderate HPF (Negative); C & S Indicated? Yes; Casts Negative LPF (Negative); Crystals Negative HPF (Negative); Epithelial Cells Moderate HPF (Negative); Mucus Negative (Negative); Other Cells Few Transitional (Negative)
[2023-10-18] MEDS: Ketorolac 15 MG/ML VIAL IVP (15:00)
[2023-10-18] MEDS: Normal Saline 1,000 ML 1000 ML IV (15:00)
[2023-10-18] MEDS: Ondansetron 4 MG/2 ML VIAL IVP (15:01)
[2023-10-18] MEDS: cefTRIAXone 1 GM/50 ML BAG IVPB (15:13)
[2023-10-18 15:17] LABS: ALT 19 U/L (14-59); AST 15 U/L (15-37); Albumin 3.4 g/dL (3.4-5.0); Alkaline Phosphatase 74 U/L (46-116); BUN 8 mg/dL (7-18); Bilirubin, Total 0.33 mg/dL (0.2-1.0); CREATININE 0.8 mg/dL (0.55-1.02); Calcium 8.8 mg/dL (8.5-10.1); Chloride 105 mmol/L (98-107); Glucose 100 mg/dL (74-106); Sodium 142 mmol/L (136-145); Total Protein 7.3 g/dL (6.4-8.2)
--- NOTE | 2023-10-18 15:30 | DI.US_ITS ---
Exam(s) US RENAL EXAM: US RENAL CLINICAL HISTORY: Flank pain TECHNIQUE: Ultrasound of both kidneys performed using standard protocol. COMPARISON: US US PELVIS TRANSVAGINAL from 09/02/[address] ABDOMEN PELVIS W from 01/03/2022 FINDINGS: RIGHT KIDNEY: Measures 11.7 cm in length. No cysts evident. Normal cortical thickness and corticomedullary differen tiation .No solid masses No intrarenal calculi nor hydronephrosis. LEFT KIDNEY: Measures 10.9 cm in length. No cysts evident. Normal cortical thickness and corticomedullary differe ntiaion. No solids masses. No intrarenal calculi nor hydonephrosis. URINARY BLADDER: Prevoid volume is 76 cc Postvoid volume is 1 cc No evidence of bladder mass nor diverticuli. Ureterovesical jets: Both not identified IMPRESSION: 1. No significant focal ultrasound findings in the kidneys and urinary bladder. 2. There is nonvisualization of both ureterovesical jets within the urinary bladder. This may indic ate low urine output. There does not appear to be obvious obstruction/hydronephrosis. DATA REPOSITORY:
--- NOTE | 2023-10-18 15:39 | ED.PROG_ITS ---
Date of service: 10/18/23 Time of Service: 15:39 Medical Decision Making This dictation utilizes [id number] dictation software and may contain unedited grammatical errors. Patient seen in sign-out from Marge Trimble NP- please see her complete note. 43 y/o F presents to ED today with a chief complaint of R sided flank pain, fever, history of frequent pyelonephritis, endorsing chills and nausea yesterday. No history of renal stones. Patient is awaiting US Renal study. Patients' medical history: Dysfunctional uterine bleeding, history of pyelonephritis. Family and social history: noncontributory. Pertinent exam findings / vital signs include bilateral flank pain, afebrile nontoxic vitals. Differential / pathologies of concern include pyelonephritis, UTI, unlikely sepsis. Diagnostic studies of: -CBC, CMP, UA, Lipase, POC Urine Preg, US Renal. -CBC without leukocytosis -CMP no PATRICK, SCr WNL -UA shows hematuria, 20-50 WBCs on micro w/ leuk esterase, no proteinuria -Lipase neg -US Renal shows no acute findings, as expected with pyelo, does not change treatment, no urinary obstruction was suspected Interventions of: -Rx for cefpodoxime outpatient. ED Course/Assessment/Plan: 43-year-old female presents with history of pyelonephritis, having dysuria and right-sided flank pain and intermittent chills/fevers. Labs are reassuring for no systemic infection, lipase is negative, UA shows hematuria and 20-50 WBCs on micro with no proteinuria, there is no history of kidney stone. Ultrasound was negative. Treating empirically for pyelonephritis with cefpodoxime as an outpatient, stressed strict return criteria for worsening fever and flank pain especially with nausea and weakness despite treatment. Findings not consistent with systemic infection, obstructive uropathy, biliary colic. Disposition of Pyelonephritis. Patient verbalized understanding of the plan and return to ED criteria and engaged in shared decision making. Medical Records Medical records reviewed: Yes I reviewed the patient's medical records. Imaging Data Radiologic Study: Attestation: I personally reviewed and interpreted this imaging study as follows: Imaging: Ultrasound Radiologist's impression: EXAM: US RENAL CLINICAL HISTORY: Flank pain TECHNIQUE: Ultrasound of both kidneys performed using standard protocol. COMPARISON: US US PELVIS TRANSVAGINAL from 09/02/[address] ABDOMEN PELVIS W from 01/03/2022 FINDINGS: RIGHT KIDNEY: Measures 11.7 cm in length. No cysts evident. Normal cortical thickness and corticomedullary differentiation .No solid masses No intrarenal calculi nor hydronephrosis. LEFT KIDNEY: Measures 10.9 cm in length. No cysts evident. Normal cortical thickness and corticomedullary differentiaion. No solids masses. No intrarenal calculi nor hydonephrosis. URINARY BLADDER: Prevoid volume is 76 cc Postvoid volume is 1 cc No evidence of bladder mass nor diverticuli. Ureterovesical jets: Both not identified IMPRESSION: 1. No significant focal ultrasound findings in the kidneys and urinary bladder. 2. There is nonvisualization of both ureterovesical jets within the urinary bladder. This may indicate low urine output. There does not appear to be obvious obstruction/hydronephrosis. Lab Data Lab results reviewed: Yes I reviewed the patient's lab results. Labs: 10/18/23 14:30 Urine - Reflex from Ua Urine Culture - Pending Laboratory Tests Range/Units 10/18/23 10/18/23 14:30 14:43 WBC (4.4-10.8) 10^3/uL 7.06 RBC (3.93-5.22) 10^6/uL 4.32 Hgb (11.2-15.7) g/dL 12.8 Hct (36.0-46.0) % 39.4 MCV (80-95) fL 91 MCH (27.0-33.0) pg 29.6 MCHC (32.0-36.0) % 32.5 RDW (11.7-14.6) % 14.9 H Plt Count (130-400) 10^3/uL 165 MPV (8.0-11.0) fL 12.4 H Immature Gran % % 0.1 Neutrophils % % 62.8 Lymphocytes % % 23.7 Monocytes % % 11.9 Eosinophils % % 1.1 Basophils % % 0.4 Nucleated RBC % (0.0-0.3) % 0.0 Absolute Neutrophils (1.2-6.7) 10^3/uL 4.43 Absolute Lymphocytes (1.2-3.4) 10^3/uL 1.67 Absolute Monocytes (0.1-0.8) 10^3/uL 0.84 H Absolute Eosinophils (0.0-0.7) 10^3/uL 0.08 Absolute Basophils (0.0-0.2) 10^3/uL 0.03 Sodium (136-145) mmol/L 142 Potassium (3.5-5.1) mmol/L 4.0 Chloride (98-107) mmol/L 105 Carbon Dioxide (21.0-32.0) mmol/L 29.0 Anion Gap (3-11) mmol/L 8.0 BUN (7-18) mg/dL 8 Creatinine (0.55-1.02) mg/dL 0.8 Est GFR (CKD-EPI 2020) (mL/min/1.73m2) 93.70 Glucose (74-106) mg/dL 100 Calcium (8.5-10.1) mg/dL 8.8 Total Bilirubin (0.2-1.0) mg/dL 0.33 AST (15-37) U/L 15 ALT (14-59) U/L 19 Alkaline Phosphatase (46-116) U/L 74 Total Protein (6.4-8.2) g/dL 7.3 Albumin (3.4-5.0) g/dL 3.4 Lipase (16-77) U/L 26 Urine Color (Yellow) Yellow Urine Clarity (Clear) Cloudy Urine pH (5-8) 6.0 Ur Specific Maple (1.005-1.025) 1.020 Urine Protein (Neg-Trace) mg/dL Negative Urine Ketones (Negative) mg/dL Negative Urine Blood (Negative) Moderate H Urine Nitrite (Negative) Negative Urine Bilirubin (Negative) Negative Urine Urobilinogen (Up to 0.2) mg/dL 0.2 Ur Leukocyte Esterase (Negative) Small H Urine RBC (0-2) HPF 10-20 H Urine WBC (0-5) HPF 20-50 H Ur Epithelial Cells (Negative) HPF Moderate Urine Crystals (Negative) HPF Negative Urine Bacteria (Negative) HPF Moderate Urine Casts (Negative) LPF Negative Urine Mucus (Negative) Negative Urine Other (Negative) Few Transitional Ur Culture Indicated? Yes Urine Glucose (Negative) mg/dL Negative Quality:SDOH Health Related Social Needs: No Data to Display Sign Out Sign Out Data: Sign Out Comment: Here with bilateral flank pain, chills and subjective fever for 2 to 3 days. Pending renal ultrasound, does have RBCs 20-50 WBCs on urinalysis. Given 1 g Rocephin IV piggyback, Toradol 15 mg IV, Zofran 4 mg IV, liter of fluid. Most likely disposition discharge with antibiotics for pyelonephritis and referral to [facility] for cocaine use, I did offer patient declined at this time. Last updated by Marge Trimble NP at 10/18/23 15:32 Discharge Plan Disposition Patient Disposition: Home Condition: Stable Discharge Details Clinical Impression: Pyelonephritis Primary Care Provider: None,None ED Provider: Thierry Joyce Home Meds and New Rx's Prescriptions: New cefpodoxime 200 mg tablet 200 mg PO BID 14 Days Qty: 28 0RF Rx Instructions: must administer with a meal/food Discharge Instructions Instructions: Cefpodoxime, Urinary Tract Infection, Adult ED Additional Instructions: You were seen in the emergency department for your right-sided flank pain with some chills and nausea, you likely have a UTI that has spread to the kidney. There is no significant elevation of your white blood cells on blood work I think the infection is isolated to the urinary tract at this time and we can start an antibiotic called cefpodoxime sent to your pharmacy for pyelonephritis. Please take Tylenol and ibuprofen as needed for pain relief, stay well- hydrated, return for any urinary retention, increasing fever despite treatment, weakness, intractable nausea and vomiting. Discharge Data Discharge Date/Time-TO BE ENTERED AT DEPARTURE: 10/18/23 16:44
[2023-10-18 15:43] LABS: Lipase 26 U/L (16-77)
== END 2023-10-18 16:44 | disposition home or self-care (01) ==
PROVIDERS: Emergency Medicine; Registered Nurse Emergency; Emergency Provider Physician Assistant
DX: R10.31 Right lower quadrant pain (principal); R10.32 Left lower quadrant pain; N12 Tubulo-interstitial nephritis, not specified as acute or chronic; Z87.440 Personal history of urinary (tract) infections
CPT/HCPCS: 00123; 36415; 76770; 80053; 81025; 83690; 87077; 96365; 96375; 99284; 81003; 81015; 85025; 87086; 87186; 99283; J0696; J1885; J2405